=== PATIENT | male | born 1945 | race Caucasian/White ===

== ENCOUNTER 2017-07-12 19:11 | Inpatient (IN) ==
[2017-07-12 20:28] LABS: Hematocrit 28.8 % (42.0-52.0); Hemoglobin 9.5 gm/dL (13.5-18.0); Mean Cell Volume 96.3 fl (78-100); Mean Corpuscular Hemoglobin 31.8 pg (27-31); Neutrophil # 10.2 K/mm3 (1.3-6.0); Neutrophil % 77.5 % (42-75.0); Platelet Count 301 K/mm3 (150-450); Red Blood Count 2.99 M/mm3 (4.7-6.0); Red Cell Distribution Width 12.8 % (11.5-14.0); White Blood Count 13.1 K/mm3 (4.0-10.5)
[2017-07-12 20:44] LABS: Urine Bilirubin Negative (NEGATIVE); Urine Blood Negative /ul (NEGATIVE); Urine Ketone Negative (NEGATIVE); Urine Nitrite Negative (NEGATIVE); Urine Protein Negative (NEGATIVE); Urine Specific Gravity <=1.005 SP.GR. (1.005-1.030); Urine Urobilinogen Normal (NORMAL)
[2017-07-12 20:49] LABS: Troponin I 0.041 ng/ml (0.00-0.10)
[2017-07-12 20:51] LABS: Albumin * 2.7 gm/dl (3.4-5.0); BUN/Creatinine Ratio 48.6 (9.0-21.6); Bilirubin, Total 0.1 mg/dL (0.0-1.1); Ca. Corrected For Albumin 8.8 mg/dL (8.4-10.2); Calcium * 8.1 mg/dL (7.9-10.9); Potassium 3.6 mmol/L (3.4-4.6); Total Protein 6.1 gm/dL (6.2-8.2)
[2017-07-12 20:56] LABS: Urine Amorphous Sediment TRACE (NONE-FEW); Urine Appearance Clear (CLEAR); Urine Bacteria TRACE; Urine Color Yellow; Urine RBC None Seen /hpf (0-5); Urine WBC None Seen /hpf (0-5)
[2017-07-12 21:00] LABS: Anion Gap 12.3 mmol/L (6.8-13.8); Carbon Dioxide 27.3 mmol/L (24-32.6)
--- NOTE | 2017-07-12 21:09 | ERNOTE ---
Dyspnea - Date Date of Service: 07/12/17 - General Presenting Symptoms: shortness of breath, difficulty of breathing Time Seen by Provider: 07/12/17 19:47 Source: patient, family Exam Limitations: no limitations - Immun/Allergies/Home Medications Immunizations: IMMUNIZATION HX History of Influenza Vaccine No Hx Pneumococcal Vaccination No Allergies/Adverse Reactions: Allergies No Known Allergies Allergy (Unverified 03/21/12 09:15) Home Medications: HOME MEDICATIONS Alprazolam [Alprazolam ER] 0.5 mg PO TID 03/21/12 [Last Taken 03/21/12 08:00] Citalopram Hydrobromide [Citalopram HBr] 20 mg PO DAILY 03/21/12 [Last Taken 21/03 08:00] Desloratadine 5 mg PO DAILY 03/21/12 [Last Taken 03/21/12 08:00] Hydrocodone/Acetaminophen [Hydrocodon-Acetaminoph 7.5-325] 1 each PO 03/21/12 [ Last Taken Unknown] Loratadine [Claritin] 10 mg PO DAILY 03/21/12 [Last Taken Unknown] Losartan/Hydrochlorothiazide [Losartan-Hctz 100-25 mg Tab] 1 each PO DAILY 03/21 [Last Taken 03/21/12 08:00] Penicillin V Potassium 250 mg PO 03/21/12 [Last Taken Unknown] Venlafaxine HCl [Effexor Xr] 75 mg PO DAILY 03/21/12 [Last Taken 03/21/12 08:00] amLODIPine BESYLATE [Norvasc (Amlodipine)] 10 mg PO DAILY 03/21/12 [Last Taken 03/21/12 08:00] metFORMIN HCL [Metformin HCl ER] 850 mg PO BID 03/21/12 [Last Taken 03/21/12 08: 00] - History of Present Illness Narrative: patient c/o sob weakness. has had black diarrhea for last several days Severity: moderate Treatment [employer]: none Initiating event: Reports: other - black stools Frequency of episodes: Reports: no prior episodes Modifying Factors - (Improves): Reports: nothing Modifying Factors (Worsens): Reports: activity Associated Symptoms-Dyspnea: Reports: lightheadedness, anxiety, tingling of hands/face Review of Systems - Narrative Narrative: unremarkable - Review of Systems Constitutional: Present: See HPI, weakness, fatigue, malaise EYE: Present: no symptoms reported ENT: Present: no symptoms reported Respiratory: Present: shortness of breath, orthopnea Cardiology: Present: no symptoms reported Gastrointestinal/Abdominal: Present: See HPI, diarrhea, other - black stools Genitourinary: Present: no symptoms reported Musculoskeletal: Present: no symptoms reported Skin: Present: no symptoms reported Neurological: Present: no symptoms reported Endocrine: Present: no symptoms reported Hematologic/Lymphatic: Present: no symptoms reported - Narrative Narrative: unremarkable - Patient's Past Medical History Patient History - Medical: Diabetes Type 2 Patient History - Cardiac/Respiratory: Hypertension, Hyperlipidemia Patient History - Cancer: No Hx of Cancer Patient History - Surgical Procedures: No surgical history Patient History - Other: None - Family History Family History:: no untoward family reactions to anesthesia, no familial bleeding tendencies, no family history of clotting disorders, no family history of premature - Social History Living Situations: home Abuse History: No History of abuse Psych History: No pertinent hx Does anyone smoke in the home?: No Smoking Status: Former smoker Have you smoked in the past 12 months: No Do you dip or chew tobacco: No Patient requests Smoking Cessation Consult: No Initiate information on Smoking Cessation: No Alcohol Use: heavy Drug Use: none - Immunizations Hx Pneumococcal Vaccination: No History of Influenza Vaccine: No Physical Exam - Physical Exam General Appearance: Present: mild distress, anxious Head Exam: Present: normal inspection, no evidence of injury Eye Exam: Normal inspection: bilateral, PERRL: bilateral, EOMI: bilateral Ears, Nose, Throat: Present: normal ENT inspection Neck: Present: normal inspection, nontender Respiratory: Present: respiratory distress, rales, rhonchi Cardiovascular/Chest: Present: regular rate, rhythm, no murmur, normal peripheral pulses Peripheral Pulses: N=norm/S=strong/W=weak/B=bound/A=absent: Carotid (R): Normal , Carotid (L): Normal, Radial (R): Normal, Radial (L): Normal, Femoral (R): Normal, Femoral (L): Normal, Dorsalis-pedis (R): Normal, Dorsalis-pedis (L): Normal Gastrointestinal/Abdominal: Present: normal bowel sounds, nontender, nondistended, soft, no organomegaly Back Exam: Present: normal inspection, normal range of motion, no CVA tenderness , no vertebral tenderness Extremity Exam: Present: normal inspection, pedal edema Neurological Exam: Present: alert, oriented, normal mood/affect, no motor/ sensory deficits Skin Exam: Present: normal color, warm/dry Lymphatic Exam: Present: no adenopathy ED Progress - Date and Time Seen: Date and Time: 07/12/17 22:24 condition unchanged - Results and Orders Patient's Lab Results:: I have reviewed the patient's lab results. - Vital Signs Vital Signs: Vital Signs 07/12/17 19:13 Temperature 37.1 C Pulse Rate 114 H Respiratory 32 H Rate Blood Pressure 161/76 O2 Sat by Pulse 98 Oximetry - EKG EKG: other - sinus tachycardia EKG read: Interp. by me - Progress/Reassessment Chief Complaint: Dyspnea Progress:: Unchanged - Transfer of Care Expected Disposition: Admit Plan - Plan Plan: case discussed with [facility] hospitalist who accepts patient for admission Departure Clinical Impression: Congestive heart failure, GI bleed - Departure Disposition: Still a patient Condition: Fair Referrals: David Koo DO [Primary Care Provider] -
[2017-07-12] MEDS ORDERED: LORazepam 2 MG/ML DISP.SYRIN IV ONE (21:15)
[2017-07-12 21:21] LABS: Amylase * 35 U/L (25-115); Lipase 89 U/L (73-393)
[2017-07-12] MEDS ORDERED: LORazepam 2 MG/ML DISP.SYRIN ONE (21:23)
[2017-07-12 21:37] LABS: Prothrombin Time (Patient) 11.4 Seconds (9.0-11.0)
[2017-07-12 21:42] LABS: INR 1.14 INR (0.90-1.10); Partial Thrombolplastin Time 25.3 Seconds (24-32)
[2017-07-12] MEDS ORDERED: FUROSEMIDE 10 MG/ML VIAL IV ONE (22:08)
[2017-07-12] MEDS ORDERED: FUROSEMIDE 10 MG/ML VIAL ONE (22:17)
[2017-07-12 22:46] LABS: Hematocrit 28.8 % (42.0-52.0); Hemoglobin 9.5 gm/dL (13.5-18.0); Mean Cell Volume 96.6 fl (78-100); Mean Corpuscular Hemoglobin 31.9 pg (27-31); Mean Platelet Volume 9.3 fl (6.0-9.5); Neutrophil # 10.7 K/mm3 (1.3-6.0); Neutrophil % 72.6 % (42-75.0); Platelet Count 359 K/mm3 (150-450); Red Blood Count 2.98 M/mm3 (4.7-6.0); Red Cell Distribution Width 12.7 % (11.5-14.0); White Blood Count 14.8 K/mm3 (4.0-10.5)
--- NOTE | 2017-07-13 00:32 | HP ---
Chief Complaint - Chief Complaint Date of Service: 07/12/17 Time of Service: 23:52 Chief Complaint: "SOB, Weakness, Dizziness". Source of HPI- Pt; reliable, ERP report, Pt's POA- [place]. History of Present Illness: Mr. Spence is a 71-yr-old WM pt of Dr. David Koo in [place]. His PMH is significant for: Anxiety, Depression, DM II & HTN. Pt states that he started becoming SOB on 07/11 and that it's worsened with activity. He also felt weak & lightheaded and was brought to the ED due to these symptom by his brother Anjali, who is also POA. Pt reports noting black stools that begun 2 days also. He denies having any abdominal pain with this. He denies hematemesis and hematochezia. Anjali states that pt was hospitalized 1 month ago at the [facility] for Pneumonia and was there for at least 3 days. He states that pt lost his 6 yrs ago and for the last 4-5 yrs, he has been drinking heavily due to depression. Pt admits that he drinks at least 1-2 cases of 12pck beer daily. The only time time he never tasted alcohol was during 3 day hospital stay in [place]. At the ED tonight, he was found to have Hgb of 9.5 whereas previous level on 07/01/17 at [facility] was 13.8mg/dL.The occult stool was positive. The CXR had findings concerning for pulmonary congestion ( official CXR report pending), BNP--> 466, WBC--> 14,800. No infection on UA. He will be admitted under observation for Anemia due to blood loss from unknown source and signs of Acute Heart Failure. - Patient's Past Medical History Patient History - Medical: Anxiety, Diabetes Type 2, Depression Patient History - Cardiac/Respiratory: Hypertension, Hyperlipidemia Patient History - Cancer: No Hx of Cancer Patient History - Surgical Procedures: No surgical history Patient History - Other: None - Family History Family History:: no untoward family reactions to anesthesia, no familial bleeding tendencies, no family history of clotting disorders, no family history of premature - Family History Father Family History - Medical: Family History - Cardiac/Respiratory: Asthma Mother Family History - Medical: Family History - Cardiac/Respiratory: CVA/Stroke Brother Family History - Medical: Family History - Cancer: Throat Sister Family History - Medical: Family History - Cardiac/Respiratory: No pertinent hx Family History - Cancer: Liver - Social History Living Situations: home Abuse History: No History of abuse Psych History: No pertinent hx Does anyone smoke in the home?: No Smoking Status: Former smoker Have you smoked in the past 12 months: No Do you dip or chew tobacco: No Patient requests Smoking Cessation Consult: No Initiate information on Smoking Cessation: No Alcohol Use: heavy Drug Use: none - Immunizations Hx Pneumococcal Vaccination: No History of Influenza Vaccine: No Review Of Systems (GEN) - Review of Systems Generalized/Overall Review: Present: Weakness. Absent: Fever, Malaise, Fatigue EENTM: Absent: Eye Pain, Blurred Vision, Tearing, Double Vision Respiratory: Present: Shortness of Breath, Wheezing. Absent: Cough, Orthopnea Cardiac: Absent: Chest Pain, Edema, Palpitations Abdominal: Absent: Nausea, Vomiting, Hematemesis, Abdominal Pain, Constipation Genitourinary: Absent: Burning, Itching, Urgency Musculoskeletal: Absent: Joint Pain, Back Pain, Joint Swelling Neurological: Present: Depressed, Emotional Problems, Weakness. Absent: Headache, Anxiety Skin: Absent: Dryness, Lesions Endocrine: Absent: Intolerance to Cold, Increased Thirst Misc: All systems neg except as marked Immunizations: IMMUNIZATION HX History of Influenza Vaccine No Hx Pneumococcal Vaccination No Allergies/Adverse Reactions: Allergies Allergy/AdvReac Type Severity Reaction Status Date / Time No Known Allergies Allergy Unverified 07/12/17 23:12 Home Medications: HOME MEDICATIONS Alprazolam 1 mg PO TID 07/13/17 [Last Taken Unknown] Amlodipine Besylate 10 mg PO DAILY 07/13/17 [Last Taken Unknown] Escitalopram Oxalate [Lexapro] 20 mg PO DAILY 07/13/17 [Last Taken Unknown] Fexofenadine HCl [Allergy Relief] 180 mg PO HS 07/13/17 [Last Taken Unknown] HYDROcodone/ACETAMINOPHEN [Hydrocodon-Acetaminoph 7.5-325] 1 each PO QID [Last Taken Unknown] Metoprolol Succinate 25 mg PO DAILY 07/13/17 [Last Taken Unknown] Zolpidem Tartrate 10 mg PO HS 07/13/17 [Last Taken Unknown] metFORMIN HCL [Glucophage] 850 mg PO BID 07/13/17 [Last Taken Unknown] Exam - Exam Vital Signs: Vital Signs - Last Taken Temp 37.1 C 07/12/17 19:13 Pulse 109 H 07/12/17 22:30 Resp 21 H 07/12/17 22:30 BP 115/73 07/12/17 22:30 Pulse Ox 99 07/12/17 22:30 Constitutional: Present: Alert, Oriented x3, Cooperative, No distress ENT Exam: Present: normal ENT inspection, hearing grossly normal Eye Exam: bilateral eye: normal inspection, PERRL Neck: Present: non-tender, full range of motion, supple Back Exam: Present: normal inspection, no CVA tenderness Breasts: Present: Exam deferred Respiratory: Present: wheezing, expiration (prolonged), No rales Cardiovascular/Chest: Present: normal peripheral pulses, regular rate, rhythm, no chest tenderness, no edema Abdomen: Present: Normal bowel sounds, soft, nontender /Rectal: Present: Exam deferred Extremity: Present: normal range of motion, non-tender, normal inspection, no pedal edema Skin Exam: Present: warm/dry, no cyanosis Lymphatic: Present: no adenopathy Neurologic: Present: alert, oriented x 3, depressed affect Appearance: Present: appropriate appearance, appropriate insight Eye contact: Present: cooperative, good eye contact, normal speech Thoughts: Present: normal thought pattern, no apparent hallucination Diagnostic Studies: Abnormal Lab Results 07/12/17 Range/Units 22:45 WBC 14.8 H (4.0-10.5) K/mm3 RBC 2.98 L (4.7-6.0) M/mm3 Hgb 9.5 L (13.5-18.0) gm/dL Hct 28.8 L (42.0-52.0) % MCH 31.9 H (27-31) pg Immature Gran % (Auto) 0.50 H (0.001-0.429) % Immature Gran # (Auto) 0.07 H (0.000-0.0310) K/mm3 Lymphocytes % 18.2 L (20-51) % Neutrophils # 10.7 H (1.3-6.0) K/mm3 Monocytes # 1.1 H (0.0-1.0) k/mm3 Laboratory Results WBC 14.8 K/mm3 (4.0-10.5) H 07/12/17 22:45 RBC 2.98 M/mm3 (4.7-6.0) L 07/12/17 22:45 Hgb 9.5 gm/dL (13.5-18.0) L 07/12/17 22:45 Hct 28.8 % (42.0-52.0) L 07/12/17 22:45 MCV 96.6 fl (78-100) 07/12/17 22:45 MCH 31.9 pg (27-31) H 07/12/17 22:45 MCHC 33.0 g/dl (32-36) 07/12/17:45 RDW 12.7 % (11.5-14.0) 07/12/17:45 Plt Count 359 K/mm3 (150-450) 07/12/17 22:45 MPV 9.3 fl (6.0-9.5) 07/12/17 22:45 Immature Gran % (Auto) 0.50 % (0.001-0.429) H 07/12/17:45 Immature Gran # (Auto) 0.07 K/mm3 (0.000-0.0310) H 07/12/17 22:45 Neutrophils % 72.6 % (42-75.0) 07/12/17 22:45 Lymphocytes % 18.2 % (20-51) L 07/12/17 22:45 Monocytes % 7.7 % (0.0-9) 07/12/17 22:45 Eosinophils % 0.7 % (0.0-3.0) 07/12/17:45 Basophils % 0.3 % (0.0-1.0) 07/12/17 22:45 Nucleated RBC % 0.0 k/mm3 (0-1) 07/12/17 22:45 Neutrophils # 10.7 K/mm3 (1.3-6.0) H 07/12/17 22:45 Lymphocytes # 2.69 k/mm3 (1.5-3.5) 07/12/17 22:45 Monocytes # 1.1 k/mm3 (0.0-1.0) H 07/12/17:45 Eosinophils # 0.1 k/mm3 (0.0-0.7) 04/20/18 22:45 Absolute Basophils 0.1 k/mm3 (0.0-0.1) 07/12/17 22:45 PT 11.4 Seconds (9.0-11.0) H 07/12/17 20:25 INR (Anticoag Therapy) 1.14 INR (0.90-1.10) H 07/12/17 20:25 PTT (Sandoval) 25.3 Seconds (24-32) 07/12/17 20:25 pCO2 27.4 mmHg (35.0-48.0) L 07/12/17 20:25 pO2 85.9 mmHg (83.0-108.0) 07/12/17 20:25 HCO3 22.0 mmol/L (21.0-28.0) 07/12/17 20:25 Total CO2 22.8 mmol/L (19.0-24.0) 07/12/17 20: Base Excess -0.2 mmol/L (-2.0-3.0) 07/12/17 20:25 ABG pH 7.52 (7.35-7.45) H 07/12/17 20:25 ABG O2 Sat (Measured) 97.5 % (94.0-98.0) 07/12/17 20:25 Sodium 134 mmol/L (132-142) 07/12/17 20:20 Plasma Sodium 135 mmol/L (130-142) 07/12/17 20:20 Potassium 3.6 mmol/L (3.4-4.6) 07/12/17 20:20 Chloride 98 mmol/L (97-106) 07/12/17 20:20 Carbon Dioxide 27.3 mmol/L (24-32.6) 07/12/17 20:20 Anion Gap 12.3 mmol/L (6.8-13.8) 07/12/17 20:20 BUN 54 mg/dL (6-23) H 07/12/17 20:20 Creatinine 1.11 mg/dL (0.4-1.4) 07/12/17 20:20 Est GFR (Non-Af Amer) 70 mL/min (60-130) 07/12/17 20:20 BUN/Creatinine Ratio 48.6 (9.0-21.6) H 07/12/17 20:20 Random Glucose 169 mg/dL (70-110) H 07/12/17 20:20 Calcium 8.1 mg/dL (7.9-10.9) 07/12/17 20:20 Calcium Adj for Albumin 8.8 mg/dL (8.4-10.2) 07/12/17 20:20 Total Bilirubin 0.1 mg/dL (0.0-1.1) 07/12/17 20:20 AST 17 U/L (0-48) 07/12/17 20:20 ALT 14 U/L (19-67) L 07/12/17 20:20 Alkaline Phosphatase 75 U/L (50-170) 07/12/17 20:20 Troponin I 0.041 ng/ml (0.00-0.10) 07/12/17 20:20 B-Natriuretic Peptide 455 pg/mL (5-350) H 07/12/17 20:20 Total Protein 6.1 gm/dL (6.2-8.2) L 07/12/17 20:20 Albumin 2.7 gm/dl (3.4-5.0) L 07/12/17 20:20 Amylase 35 U/L (25-115) 07/12/17 19:45 Lipase 89 U/L (73-393) 07/12/17 19:45 Urine Color Yellow 07/12/17 20:15 Urine Appearance Clear (CLEAR) 07/12/17 20:15 Urine pH 6.0 pH (5.0-7.0) 07/12/17 20:15 Ur Specific [place] <=1.005 SP.GR. (1.005-1.030) 07/12/17 20:15 Urine Protein Negative mg/dL (NEGATIVE) 07/12/17 20:15 Urine Glucose (UA) Negative mg/dL (NEGATIVE) 07/12/17 20:15 Urine Ketones Negative mg/dL (NEGATIVE) 07/12/17 20:15 Urine Blood Negative /ul (NEGATIVE) 07/12/17 20:15 Urine Nitrate Negative (NEGATIVE) 07/12/17 20:15 Urine Bilirubin Negative mg/dl (NEGATIVE) 07/12/17 20:15 Urine Urobilinogen Normal EU/dl (NORMAL) 07/12/17 20:15 Ur Leukocyte Esterase Negative /ul (NEGATIVE) 07/12/17 20:15 Urine RBC None seen /hpf (0-5) 07/12/17 20:15 Urine WBC None seen /hpf (0-5) 07/12/17 20:15 Ur Epithelial Cells None seen /hpf (0-5) 07/12/17 20:15 Amorphous Sediment Trace (NONE-FEW) 07/12/17 20:15 Urine Bacteria Trace (NONE) 07/12/17 20:15 Urine Culture Comments No culture indicated 07/12/17 20:15 Stool Occult Blood Positive H 07/12/17 20:20 Blood Type O Positive 07/12/17 20:20 Antibody Screen Negative 07/12/17 20:20 Assessment/Plan - Assessment/Plan (1) Acute heart failure Assessment: Pt presented with Dyspnea, reports of fatigue/weakness, had findings of Pulmonary edema on CXR, & bnp of 455. Given Lasix 40mg IVP at the ED which gave minimal relief. Will await official radiology to determine need for continued diuretic therapy. Problem: Acute Qualifiers: Heart failure type: diastolic Qualified Code(s): I50.31 - Acute diastolic ( congestive) heart failure (2) GI bleed Assessment: Pt noted to have black tarry stools which was also positive for Occult testing. Pt has a history of heavy alcohol use therefore has risk for peptic ulcer. Will monitor serial H/H and keep on clear liquid diet. Consult Dr. Yang in am. Problem: Acute (3) Anemia Problem: Acute (4) Alcohol use disorder, severe, dependence Assessment: Associated with Depression. Will follow CIWAr protocol to aid with controlling withdrawal symptoms. Consult Psychiatry. Problem: Chronic (5) Depression Problem: Chronic (6) Leukocytosis Assessment: ? Pneumonia. UA was negative of infection. Await official CXR results. Laboratory Tests 07/12/17 07/12/17 20:20 22:45 WBC 13.1 H 14.8 H Problem: Acute (7) HTN (hypertension) Problem: Chronic Qualifiers: Hypertension type: essential hypertension Qualified Code(s): I10 - Essential (primary) hypertension (8) Diabetes Assessment: Continue Metformin. Accuchecks ACHS, Consistent Carb diet. Problem: Chronic (9) Anxiety Problem: Chronic
[2017-07-13] MEDS ORDERED: LORazepam 1 MG TABLET PO ONE (01:38)
[2017-07-13] MEDS: LORATADINE 10 MG TABLET PO SCH ×2 (03:14→20:45)
[2017-07-13] MEDS: LORazepam 2 MG/ML DISP.SYRIN IV PRN ×5 (05:00→21:58)
[2017-07-13 05:59] LABS: Mean Cell Volume 97.2 fl (78-100); Mean Corpuscular Hemoglobin 32.1 pg (27-31); Mean Corpuscular Hgb Conc 33.1 g/dl (32-36); Mean Platelet Volume 9.3 fl (6.0-9.5); Neutrophil % 78.8 % (42-75.0); Platelet Count 291 K/mm3 (150-450); Red Blood Count 2.46 M/mm3 (4.7-6.0); Red Cell Distribution Width 12.9 % (11.5-14.0); White Blood Count 10.2 K/mm3 (4.0-10.5)
[2017-07-13 06:03] LABS: Hematocrit 23.9 % (42.0-52.0)
[2017-07-13 06:04] LABS: Hemoglobin 7.9 gm/dL (13.5-18.0)
[2017-07-13] MEDS ORDERED: NORMAL SALINE 1,000 ML IV PRN (07:50)
[2017-07-13] MEDS: PANTOPRAZOLE SODIUM 40 MG in NORMAL SALINE 100 ML IV SCH (08:03)
--- NOTE | 2017-07-13 08:45 | PN ---
Subjective - Date and Time Seen Date: 07/13/17 Time: 08:38 Subjective Narrative: patient says e has been febrile the last few days too. he sasy he has always been having on and off SOb but the last 2-3 days he has been more short of breath. Objective - Review of Systems Generalized/Overall Review: Reports: Weakness, Fever Respiratory: Reports: Shortness of Breath. Denies: Orthopnea Cardiac: Denies: Chest Pain, Edema, Palpitations Abdominal: Reports: Nausea, Melena. Denies: Vomiting Genitourinary Symptoms: Denies: Urgency, Frequency - Vitals Vitals: Last Vital Signs Temp 36.4 C L 07/13/17 06:09 Pulse 98 07/13/17 06:09 Resp 20 07/13/17 06:09 BP 141/70 07/13/17 06:09 Pulse Ox 99 07/13/17 06:09 - Abnormal Lab Findings Abnormal Lab Findings: Abnormal Lab Results 07/12/17 07/13/17 Range/Units 22:45 05:45 WBC 14.8 H (4.0-10.5) K/mm3 RBC 2.98 L 2.46 L (4.7-6.0) M/mm3 Hgb 9.5 L 7.9 L* (13.5-18.0) gm/dL Hct 28.8 L 23.9 L* (42.0-52.0) % MCH 31.9 H 32.1 H (27-31) pg Immature Gran % (Auto) 0.50 H 0.60 H (0.001-0.429) % Immature Gran # (Auto) 0.07 H 0.06 H (0.000-0.0310) K/mm3 Neutrophils % 78.8 H (42-75.0) % Lymphocytes % 18.2 L 12.5 L (20-51) % Neutrophils # 10.7 H 8.0 H (1.3-6.0) K/mm3 Lymphocytes # 1.27 L (1.5-3.5) k/mm3 Monocytes # 1.1 H (0.0-1.0) k/mm3 - Exam Constitutional: Present: Alert, Oriented x3, Cooperative ENT Exam: Present: hearing grossly normal Neck: Present: supple Respiratory: Present: decreased breath sounds, wheezing, No rales Cardiovascular/Chest: Present: regular rate, rhythm, no JVD, no murmur Abdomen: Present: obese, tender - RUQ, rebound tenderness - equivocal, hypoactive Extremity: Present: no calf tenderness, pedal edema Assessment/Plan - Problems/Diagnosis (1) Anemia Problem: Acute Qualifiers: Anemia type: iron deficiency Narrative: likely UGIB (2) GI bleed Problem: Acute Qualifiers: Gastritis type: acute gastritis Narrative: r/o esophageal varices. on IV protonix. Dr. Yang consult for possible EGD. (3) Congestive heart failure Problem: Acute Narrative: clinically not in CHF but could have underlying alcohol cardiomyopahty. will try to get Echo. (4) Leukocytosis Problem: Acute Narrative: likely reactive and has resolved. but has tender RUQ , will get an US of his GB /liver. (5) Alcohol use disorder, severe, dependence Problem: Chronic (6) Anxiety Problem: Chronic (7) Depression Problem: Chronic (8) Diabetes Problem: Chronic (9) HTN (hypertension) Problem: Chronic Qualifiers: Hypertension type: essential hypertension Qualified Code(s): I10 - Essential (primary) hypertension
[2017-07-13] MEDS: THIAMINE HCL 100 MG TABLET PO SCH (08:51)
[2017-07-13] MEDS: FOLIC ACID 1 MG TABLET PO SCH ×2 (08:51→09:18)
[2017-07-13] MEDS: METOPROLOL SUCCINATE 25 MG TABLET.SA PO SCH (08:51)
[2017-07-13] MEDS: MULTIVITAMINS 1 CAP CAPSULE PO SCH ×2 (08:51→09:19)
[2017-07-13] MEDS: amLODIPine BESYLATE 10 MG TABLET PO SCH ×2 (08:51→09:19)
[2017-07-13] MEDS: ESCITALOPRAM OXALATE 10 MG TAB PO SCH ×2 (08:51→09:19)
[2017-07-13] MEDS: ALPRAZolam 1 MG TABLET PO SCH ×3 (08:56→17:14)
--- NOTE | 2017-07-13 10:30 | CONS ---
HPI - General Date of Service: 07/13/17 Source: patient, RN/MD, RN notes reviewed Exam Limitations: no limitations - History of Present Illness Initial Comments: The patient is a 71-year-old male who usually sees Dr. Koo in [place]. For the past 2 or 3 days he has noticed black sticky foul smelling bowel movements. He has been short of breath. He denies abdominal pain. He usually drinks about 2 cases of beer a day. He does not have much heartburn or indigestion, but he does have occasional crampy lower abdominal pain which is relieved by bowel movements. Initial workup revealed anemia, and his hemoglobin is fallen from 9.5-7.8 since admission. Platelet count is normal as are RBC indices with exception of increased MCH. Liver function studies, amylase/lipase are normal. BNP is slightly elevated. His white blood cell count has decreased to normal. Severity: moderate Associated Symptoms: shortness of breath, other - Tremor Allergies/Adverse Reactions: Allergies No Known Allergies Allergy (Unverified 07/12/17 23:12) Home Medications: Home Medications Medication Instructions Recorded Last Taken Alprazolam 1 mg PO TID 07/13/17 Unknown Amlodipine Besylate 10 mg PO DAILY 07/13/17 Unknown Escitalopram Oxalate [Lexapro] 20 mg PO DAILY 07/13/17 Unknown Fexofenadine HCl [Allergy Relief] 180 mg PO HS 07/13/17 Unknown HYDROcodone/ACETAMINOPHEN 1 each PO QID 07/13/17 Unknown [Hydrocodon-Acetaminoph 7.5-325] Metoprolol Succinate 25 mg PO DAILY 07/13/17 Unknown Zolpidem Tartrate 10 mg PO HS 07/13/17 Unknown metFORMIN HCL [Glucophage] 850 mg PO BID 07/13/17 Unknown - Patient's Past Medical History Patient History - Medical: Anxiety, Diabetes Type 2, Depression, Other - He had injury to his right arm and was on hydrocodone for this. He admits he became addicted to the drug and states he feels exactly the same today as when he couldn't get his hydrocodone before. Patient History - Cardiac/Respiratory: Hypertension, Hyperlipidemia Patient History - Cancer: No Hx of Cancer Patient History - Surgical Procedures: No surgical history Patient History - Other: None - Family History Family History:: no untoward family reactions to anesthesia, no familial bleeding tendencies, no family history of clotting disorders, no family history of premature - Family History Mother Family History - Medical: Family History - Cardiac/Respiratory: CVA/Stroke Family History - Cancer: No pertinent family hx Father Family History - Medical: Family History - Cardiac/Respiratory: Asthma Family History - Cancer: No pertinent family hx Brother Family History - Medical: Family History - Cancer: Throat Sister Family History - Medical: Family History - Cardiac/Respiratory: No pertinent hx Family History - Cancer: Liver - Social History Living Situations: home Abuse History: No History of abuse Psych History: No pertinent hx Does anyone smoke in the home?: No Smoking Status: Former smoker Have you smoked in the past 12 months: No Do you dip or chew tobacco: No Patient requests Smoking Cessation Consult: No Initiate information on Smoking Cessation: No Alcohol Use: heavy Drug Use: none - Immunizations Hx Pneumococcal Vaccination: No History of Influenza Vaccine: No Medications - Medications Current Medications: Current Medications Alprazolam (Xanax) 1 mg PO TID [facility] Stop: 08/12/17 09:01 Last Admin: 07/13/17 08:56 Dose: 1 mg Amlodipine Besylate (Norvasc) 10 mg PO DAILY [facility] Stop: 08/12/17 09:01 Last Admin: 07/13/17 09:19 Dose: Not Given Escitalopram Oxalate (Lexapro) 20 mg PO DAILY [facility] Stop: 08/12/17 09:01 Last Admin: 07/13/17 09:19 Dose: Not Given Folic Acid (Folic Acid) 1 mg PO DAILY [facility] Stop: 08/12/17 09:01 Last Admin: 07/13/17 09:18 Dose: Not Given Pantoprazole Sodium 40 mg/ (Sodium Chloride) 100 mls @ 400 mls/hr IV Q24H [facility] Stop: 08/12/17 07:16 Last Admin: 07/13/17 08:03 Dose: 400 mls/hr Loratadine (Claritin) 10 mg PO HS [facility] Stop: 08/12/17 02:31 Last Admin: 07/13/17 03:14 Dose: 10 mg Lorazepam (Ativan) 1 mg IV Q2H PRN PRN Reason: Alcohol Withdrawal Stop: 08/12/17 03:06 Last Admin: 07/13/17 05:00 Dose: 1 mg Lorazepam (Ativan) 2 mg IV Q1H PRN PRN Reason: Alcohol Withdrawal Stop: 08/12/17 03:06 Last Admin: 07/13/17 09:14 Dose: 2 mg Metformin HCl (Glucophage) 850 mg PO BIDWM [facility] Stop: 08/12/17 09:01 Last Admin: 07/13/17 09:18 Dose: Not Given Metoprolol Succinate (Toprol Xl) 25 mg PO DAILY [facility] Stop: 08/12/17 09:01 Last Admin: 07/13/17 08:51 Dose: 25 mg Multivitamins/Folic Acid (Multivitamin Gracie) 1 cap PO DAILY [facility] Stop: 08/12/17 09:01 Last Admin: 07/13/17 09:19 Dose: Not Given Thiamine HCl (Vitamin B-1) 100 mg PO DAILY [facility] Stop: 08/12/17 09:01 Last Admin: 07/13/17 08:51 Dose: 100 mg Review of Systems - Review of Systems Generalized/Overall Review: Present: Diaphoresis. Absent: Chills, Fever EENTM: Present: No Symptoms Reported Respiratory: Present: Shortness of Breath. Absent: Cough Cardiac: Present: Edema. Absent: Chest Pain Abdominal: Present: Other - Black tarry stools. Absent: Nausea, Vomiting, Hematemesis, Abdominal Pain Genitourinary: Present: No Symptoms Reported Musculoskeletal: Present: Other - Limited use of the right arm Neurological: Present: Anxiety, Tremors Skin: Present: No Symptoms Reported Endocrine: Present: No Symptoms Reported Physical Examination - Exam Vital Signs: Vital Signs - Last Taken Temp 36.4 C L 07/13/17 06:09 Pulse 98 07/13/17 09:19 Resp 20 07/13/17 06:09 BP 141/70 07/13/17 09:19 Pulse Ox 99 07/13/17 06:09 O2 Oxygen Delivery Method Room Air Constitutional: Present: Alert, Oriented x3, Cooperative, Well developed, Well nourished, Mild distress ENT Exam: Present: normal ENT inspection, hearing grossly normal Eye Exam: bilateral eye: normal inspection Neck: Present: full range of motion, normal inspection Breasts: Present: Exam deferred Respiratory: Present: no respiratory distress Cardiovascular/Chest: Present: regular rate, rhythm Abdomen: Present: other - Globoid, tympanitic but without percussion tenderness. No discrete point tenderness, and no rebound tenderness elicited. Bowel sounds active and cavernous Extremity: Present: pedal edema, other - Limited mobility of the right arm Skin Exam: Present: normal color, diaphoresis Neurologic: Present: camp tender II-XII nml as tested, normal cerebellar test, no motor/ sensory deficits, other - Course tremor Appearance: Present: appropriate insight Eye contact: Present: cooperative, good eye contact, normal speech Thoughts: Present: normal thought pattern, no apparent hallucination - Results and Findings: Lab/Microbiology results last 24 hrs: Abnormal/Pending Laboratory Last 24 HRS 07/13/17 07/12/17 05:45 22:45 WBC 14.8 H RBC 2.46 L 2.98 L Hgb 7.9 L* 9.5 L Hct 23.9 L* 28.8 L MCH 32.1 H 31.9 H Immature Gran % (Auto) 0.60 H 0.50 H Immature Gran # (Auto) 0.06 H 0.07 H Neutrophils % 78.8 H Lymphocytes % 12.5 L 18.2 L Neutrophils # 8.0 H 10.7 H Lymphocytes # 1.27 L Monocytes # 1.1 H - Assessments/Findings (1) GI bleed Diagnosis(s): GI bleeding with anemia, most likely source is esophagus stomach or duodenum. Need to determine whether varices, gastritis, or ulcer. Explained EGD to the patient the risks and benefits of the exam were explained. After interactive discussion his questions were answered to his apparent satisfaction and he has given informed consent for EGD with possible biopsy. This will be performed later this morning. Problem: Acute (2) Alcohol use disorder, severe, dependence Diagnosis(s): The patient does have withdrawal symptoms. He has a history of hydrocodone addiction as well and states his current symptoms are identical to withdrawal from that. He will need to be closely monitored Problem: Chronic
[2017-07-13] MEDS: INSULIN LISPRO 100 UNITS/ML VIAL SC SCH ×3 (10:44→17:10)
[2017-07-13 11:19] LABS: Hemoglobin 7.6 gm/dL (13.5-18.0)
[2017-07-13 11:20] LABS: Hematocrit 22.4 % (42.0-52.0)
[2017-07-13] MEDS ORDERED: NORMAL SALINE 1,000 ML IV ONE (11:26)
--- NOTE | 2017-07-13 12:22 | OR ---
Operative Report - Dictated Report Narrative: Operative Report Date of operation: 07/13/2017 Preoperative diagnosis: Upper GI bleeding. Anemia Postoperative diagnosis: Hiatal hernia, prepyloric and pyloric channel ulcers, duodenitis (evidence of recent, but no current bleeding) Operation: EGD with biopsies Surgeon: Dr Yang Anesthesia: JOSH AVENDAÑO CRNA Indications for procedure: The patient is a 71-year-old male presented to the emergency room with black tarry stools dizziness and shortness of breath. He was found to have heme positive stools with a falling hemoglobin. He is an active alcoholic Findings: Small hiatal hernia. 2 prepyloric and 1 pyloric channel ulcer with signs of recent bleeding. Duodenitis (pathology and CLOtest pending) Narrative of procedure: The patient was identified preoperatively, and prior to the administration of anesthetic a multidisciplinary timeout was observed With the patient in the recumbent position, a bite-block was placed, intravenous sedation administered, and the patient's eyes covered with a towel. The flexible fiberoptic gastroscope was advanced into the posterior pharynx which appeared normal. There was no sign of bleeding from above. The supraglottic larynx appeared normal. The cords appeared normal, moved well, and opposed in the midline. The scope was advanced under direct vision into the proximal esophagus which appeared normal. The esophagus appeared freely distensible with normal mucosa. The esophageal mucosa appeared normal down to the gastroesophageal junction which was sharp and noninflamed. There were no esophageal varices. There was no evidence of Kristy-Rosales tear. The GE junction appeared normally distensible. There was a small hiatal hernia. The scope was advanced into the stomach proper which was insufflated with air. The proximal stomach was erythematous with several patches of submucosal hemorrhage. A retroflexed view of the gastric fundus revealed no additional lesions and demonstrated a normal-appearing gastric side of the GE junction. The scope was redirected toward the pylorus. There were 2 large prepyloric ulcers with clot. The pylorus appeared patent. There was a small pyloric channel ulcer with clot. The scope was advanced into the duodenal bulb which appeared erythematous but without active ulcer. The scope was advanced further to the horizontal portion of the duodenum which appeared normal, specifically the villous architecture appeared well preserved and clear bile was present. The scope was slowly withdrawn through the duodenal bulb with confirmation that no active ulcer was present. The scope was withdrawn into the stomach and quality assurance representative biopsies of gastric mucosa obtained for CLOtest and pathology. The biopsy sites were seen to be hemostatic. The insufflated air was removed, the scope withdrawn from the patient, and the procedure terminated. The patient tolerated the anesthetic and procedure well without complication and was transferred back to his room awake and in stable condition. The findings were discussed with the patient, his granddaughter, and Dr Lee. Reviewed in electronically signed
[2017-07-13 16:26] LABS: Cocaine Ur Negative (NEGATIVE); Urine Barbiturate Negative (NEGATIVE); Urine PCP Negative (NEGATIVE); Urine THC Negative (NEGATIVE)
[2017-07-13 16:34] LABS: Urine Opiates Negative (NEGATIVE)
[2017-07-13 16:40] LABS: Urine Benzodiazepines Positive (NEGATIVE)
[2017-07-13] MEDS: ZOLPIDEM TARTRATE 10 MG TABLET PO SCH (20:44)
[2017-07-13] MEDS: HYDROcodone/ACETAMINOPHEN 1 EACH TABLET PO PRN (21:59)
[2017-07-13 22:26] LABS: Hematocrit 23.8 % (42.0-52.0)
[2017-07-13 22:27] LABS: Hemoglobin 7.8 gm/dL (13.5-18.0)
[2017-07-14] MEDS: LORazepam 2 MG/ML DISP.SYRIN IV PRN ×5 (03:12→22:52)
[2017-07-14] MEDS: HYDROcodone/ACETAMINOPHEN 1 EACH TABLET PO PRN ×3 (04:17→19:37)
--- NOTE | 2017-07-14 05:33 | PN ---
Subjective - Date and Time Seen Date: 07/14/17 Time: 06:01 Subjective Narrative: Pt seen this am. States RT shoulder hurts. Required prn Ativan in the night for withdrawal. Given 1 more unit of PRBC for hgb of 7.8. now 8.4 this morning. No other acute events overnight. Objective - Vitals Vitals: Last Vital Signs Temp 36.8 C 07/14/17 03:18 Pulse 81 07/14/17 03:18 Resp 35 H 07/14/17 03:18 BP 176/90 07/14/17 03:18 Pulse Ox 98 07/14/17 03:18 - Abnormal Lab Findings Abnormal Lab Findings: Abnormal Lab Results 07/13/17 07/13/17 Range/Units 15:27 23:00 Hgb 7.8 L* (13.5-18.0) gm/dL Hct 23.8 L* (42.0-52.0) % U Benzodiazepines Scrn Positive H (NEGATIVE) - Exam Constitutional: Present: Alert, Oriented x3, Cooperative, No distress ENT Exam: Present: normal ENT inspection Neck: Present: non-tender, full range of motion, supple Breasts: Present: Exam deferred Respiratory: Present: chest non-tender, wheezing, expiration (prolonged) Cardiovascular/Chest: Present: normal peripheral pulses, regular rate, rhythm, no chest tenderness Abdomen: Present: Normal bowel sounds, soft, nontender /Rectal: Present: Exam deferred Extremity: Present: normal range of motion, non-tender, normal inspection Skin Exam: Present: warm/dry, no cyanosis Lymphatic: Present: no adenopathy Neurologic: Present: no motor/sensory deficits, alert, normal mood/affect Appearance: Present: appropriate appearance, appropriate insight Eye contact: Present: cooperative, good eye contact, normal speech Thoughts: Present: normal thought pattern, no apparent hallucination Assessment/Plan - Problems/Diagnosis (1) Acute heart failure Problem: Acute Qualifiers: Heart failure type: diastolic Qualified Code(s): I50.31 - Acute diastolic ( congestive) heart failure Narrative: Manifested by SOB and elevated BNP --> 455, but no sign of fluid retention. However due to risk of Alcohol Cardiomyopathy,will need an Echocardiogram. (2) GI bleed Problem: Acute Narrative: Had EGD on 07/13/17- found to have pyloric channel ulcer without any recent bleeding. Started on PPI. (3) Peptic ulcer disease Problem: Acute Narrative: Plan to start him on PPI X 4 weeks at discharge. (4) Anemia Problem: Acute Qualifiers: Anemia type: iron deficiency (5) Alcohol use disorder, severe, dependence Problem: Chronic Narrative: Associated with Depression. Will follow CIWAr protocol to aid with controlling withdrawal symptoms. Consult Psychiatry. (6) Leukocytosis Problem: Acute Narrative: Now resolved, Was likely reactive. UA negative of infection, CXR - no acute findings, US of gallbladder negative. (7) Depression Problem: Chronic (8) HTN (hypertension) Problem: Chronic Qualifiers: Hypertension type: essential hypertension Qualified Code(s): I10 - Essential (primary) hypertension (9) Diabetes Problem: Chronic Narrative: Continue Metformin. Accuchecks ACHS, Consistent Carb diet. (10) Anxiety Problem: Chronic
[2017-07-14 05:34] LABS: Hematocrit 25.8 % (42.0-52.0); Hemoglobin 8.4 gm/dL (13.5-18.0); Mean Cell Volume 98.1 fl (78-100); Mean Corpuscular Hemoglobin 31.9 pg (27-31); Mean Corpuscular Hgb Conc 32.6 g/dl (32-36); Mean Platelet Volume 8.8 fl (6.0-9.5); Neutrophil # 6.8 K/mm3 (1.3-6.0); Neutrophil % 74.3 % (42-75.0); Platelet Count 231 K/mm3 (150-450); Red Blood Count 2.63 M/mm3 (4.7-6.0); Red Cell Distribution Width 13.9 % (11.5-14.0); White Blood Count 9.2 K/mm3 (4.0-10.5)
[2017-07-14 05:48] LABS: Chol/HDL Risk Ratio 2.6 mg/dL (3.3-5.0)
[2017-07-14] MEDS: PANTOPRAZOLE SODIUM 40 MG in NORMAL SALINE 100 ML IV SCH (06:38)
[2017-07-14] MEDS: INSULIN LISPRO 100 UNITS/ML VIAL SC SCH ×3 (06:39→17:46)
[2017-07-14] MEDS: ESCITALOPRAM OXALATE 10 MG TAB PO SCH (08:27)
[2017-07-14] MEDS: MULTIVITAMINS 1 CAP CAPSULE PO SCH (08:27)
[2017-07-14] MEDS: FOLIC ACID 1 MG TABLET PO SCH (08:27)
[2017-07-14] MEDS: amLODIPine BESYLATE 10 MG TABLET PO SCH (08:27)
[2017-07-14] MEDS: THIAMINE HCL 100 MG TABLET PO SCH (08:28)
[2017-07-14] MEDS: METOPROLOL SUCCINATE 25 MG TABLET.SA PO SCH (08:28)
[2017-07-14] MEDS: ALPRAZolam 1 MG TABLET PO SCH ×3 (08:30→17:49)
[2017-07-14] MEDS: LISINOPRIL 20 MG TABLET PO SCH (10:08)
[2017-07-14] MEDS: ZOLPIDEM TARTRATE 10 MG TABLET PO SCH (20:42)
[2017-07-14] MEDS: LORATADINE 10 MG TABLET PO SCH (20:45)
[2017-07-15] MEDS: HYDROcodone/ACETAMINOPHEN 1 EACH TABLET PO PRN ×4 (01:37→20:42)
[2017-07-15] MEDS: LORazepam 2 MG/ML DISP.SYRIN IV PRN ×2 (01:38→06:41)
[2017-07-15 06:00] LABS: Hematocrit 27.1 % (42.0-52.0); Hemoglobin 8.8 gm/dL (13.5-18.0); Mean Corpuscular Hemoglobin 32.5 pg (27-31); Mean Corpuscular Hgb Conc 32.5 g/dl (32-36); Neutrophil # 3.8 K/mm3 (1.3-6.0); Neutrophil % 61.7 % (42-75.0); Platelet Count 268 K/mm3 (150-450); Red Blood Count 2.71 M/mm3 (4.7-6.0); White Blood Count 6.1 K/mm3 (4.0-10.5)
[2017-07-15] MEDS: PANTOPRAZOLE SODIUM 40 MG in NORMAL SALINE 100 ML IV SCH (06:53)
[2017-07-15] MEDS: INSULIN LISPRO 100 UNITS/ML VIAL SC SCH ×3 (07:17→17:30)
--- NOTE | 2017-07-15 08:09 | PN ---
Subjective - Date and Time Seen Date: 07/15/17 Time: 08:05 Subjective Narrative: Patient does not like our full liquids. He says he is still very weak. Objective - Review of Systems Generalized/Overall Review: Reports: Weakness. Denies: Chills, Fever Respiratory: Denies: Cough, Shortness of Breath Cardiac: Denies: Chest Pain, Edema, Palpitations Abdominal: Denies: Nausea, Vomiting, Abdominal Pain Genitourinary Symptoms: Denies: Urgency, Frequency Neurological: Reports: Anxiety - Vitals Vitals: Last Vital Signs Temp 36.8 C 07/15/17 07:26 Pulse 88 07/15/17 07:26 Resp 18 07/15/17 07:26 BP 156/84 07/15/17 07:26 Pulse Ox 94 07/15/17 07:26 - Abnormal Lab Findings Abnormal Lab Findings: Abnormal Lab Results 07/15/17 Range/Units 05:38 RBC 2.71 L (4.7-6.0) M/mm3 Hgb 8.8 L (13.5-18.0) gm/dL Hct 27.1 L (42.0-52.0) % MCH 32.5 H (27-31) pg Monocytes % 9.3 H (0.0-9) % Eosinophils % 4.9 H (0.0-3.0) % Lymphocytes # 1.42 L (1.5-3.5) k/mm3 - Exam Constitutional: Present: Alert, Oriented x3, Cooperative ENT Exam: Present: hearing grossly normal Neck: Present: supple Respiratory: Present: normal breath sounds, No rales, No wheezing Cardiovascular/Chest: Present: regular rate, rhythm, no JVD, no murmur Abdomen: Present: Normal bowel sounds, soft, nontender, nondistended Extremity: Present: no pedal edema, no calf tenderness Assessment/Plan - Problems/Diagnosis (1) Anemia Problem: Acute Qualifiers: Anemia type: iron deficiency Narrative: s/p BT Hb 8.1 (2) GI bleed Problem: Acute Qualifiers: Gastritis type: acute gastritis Narrative: duodenal ulcers. (3) Congestive heart failure Problem: Acute (4) Leukocytosis Problem: Resolved (5) Alcohol use disorder, severe, dependence Problem: Chronic Narrative: will consult Sarah Mcfarland. (6) Anxiety Problem: Chronic (7) Depression Problem: Chronic (8) Diabetes Problem: Chronic (9) HTN (hypertension) Problem: Chronic Qualifiers: Hypertension type: essential hypertension Qualified Code(s): I10 - Essential (primary) hypertension (10) Weakness Problem: Acute Narrative: will consult PT
[2017-07-15] MEDS: FOLIC ACID 1 MG TABLET PO SCH (08:54)
[2017-07-15] MEDS: THIAMINE HCL 100 MG TABLET PO SCH (08:54)
[2017-07-15] MEDS: ALPRAZolam 1 MG TABLET PO SCH ×3 (08:54→17:28)
[2017-07-15] MEDS: MULTIVITAMINS 1 CAP CAPSULE PO SCH (08:55)
[2017-07-15] MEDS: ESCITALOPRAM OXALATE 10 MG TAB PO SCH (08:55)
[2017-07-15] MEDS: LISINOPRIL 20 MG TABLET PO SCH (08:55)
[2017-07-15] MEDS: amLODIPine BESYLATE 10 MG TABLET PO SCH (08:55)
[2017-07-15] MEDS: METOPROLOL SUCCINATE 25 MG TABLET.SA PO SCH (08:55)
--- NOTE | 2017-07-15 15:46 | CONS ---
[facility] - General Date of Service: 07/15/17 Narrative: Visit lasts approx. 20 minutes. Patient admits to long-standing depression, anxiety and alcohol dependence. He states that he was referred to someone in [facility] and has seen a counselor in [place], [place] in the past. Source: patient, RN/MD, RN notes reviewed Exam Limitations: no limitations - History of Present Illness Initial Comments: Patient states that he has had anxiety most of his life. Anxiety has gotten worse since last divorce. Alcohol use has increased. States that he would like to go into a bar and have 1-2 drinks like his friends do, instead he can't stop drinking once he starts. Drinks 12+ beers per day. Timing/Duration: getting worse Severity: severe Allergies/Adverse Reactions: Allergies No Known Allergies Allergy (Unverified 07/12/17 23:12) Home Medications: Home Medications Medication Instructions Recorded Last Taken Alprazolam 1 mg PO TID 07/13/17 Unknown Amlodipine Besylate 10 mg PO DAILY 07/13/17 Unknown Escitalopram Oxalate [Lexapro] 20 mg PO DAILY 07/13/17 Unknown Fexofenadine HCl [Allergy Relief] 180 mg PO HS 07/13/17 Unknown HYDROcodone/ACETAMINOPHEN 1 each PO QID 07/13/17 Unknown [Hydrocodon-Acetaminoph 7.5-325] Metoprolol Succinate 25 mg PO DAILY 07/13/17 Unknown Zolpidem Tartrate 10 mg PO HS 07/13/17 Unknown metFORMIN HCL [Glucophage] 850 mg PO BID 07/13/17 Unknown - Patient's Past Medical History Patient History - Medical: Anxiety, Diabetes Type 2, Depression, Other - He had injury to his right arm and was on hydrocodone for this. He admits he became addicted to the drug and states he feels exactly the same today as when he couldn't get his hydrocodone before. Patient History - Cardiac/Respiratory: Hypertension, Hyperlipidemia Patient History - Cancer: No Hx of Cancer Patient History - Surgical Procedures: No surgical history Patient History - Other: None - Family History Family History:: no untoward family reactions to anesthesia, no familial bleeding tendencies, no family history of clotting disorders, no family history of premature - Family History Mother Family History - Medical: Family History - Cardiac/Respiratory: CVA/Stroke Family History - Cancer: No pertinent family hx Father Family History - Medical: Family History - Cardiac/Respiratory: Asthma Family History - Cancer: No pertinent family hx Brother Family History - Medical: Family History - Cancer: Throat Sister Family History - Medical: Family History - Cardiac/Respiratory: No pertinent hx Family History - Cancer: Liver - Social History Living Situations: home Abuse History: No History of abuse Psych History: No pertinent hx Does anyone smoke in the home?: No Smoking Status: Former smoker Have you smoked in the past 12 months: No Do you dip or chew tobacco: No Patient requests Smoking Cessation Consult: No Initiate information on Smoking Cessation: No Alcohol Use: heavy Drug Use: none - Immunizations Hx Pneumococcal Vaccination: No History of Influenza Vaccine: No Procedures DETOXIFICATION SERVICES FOR SUBSTANCE ABUSE TREATMENT (07/13/17) EXCISION OF STOMACH, ENDO, DIAGN (07/13/17) TRANSFUSE NONAUT RED BLOOD CELLS IN CENTRAL ART, PERC (07/13/17) Medications - Medications Current Medications: Current Medications Hydrocodone Bitart/Acetaminophen (Barbeau 5-325) 1.5 each PO QID PRN PRN Reason: Moderate Pain (pain scale 4-6) Stop: 08/12/17 03:12 Last Admin: 07/15/17 14:43 Dose: 1.5 each Alprazolam (Xanax) 1 mg PO TID [facility] Stop: 08/12/17 09:01 Last Admin: 07/15/17 13:14 Dose: 1 mg Amlodipine Besylate (Norvasc) 10 mg PO DAILY [facility] Stop: 08/12/17 09:01 Last Admin: 07/15/17 08:55 Dose: 10 mg Escitalopram Oxalate (Lexapro) 20 mg PO DAILY [facility] Stop: 08/12/17 09:01 Last Admin: 07/15/17 08:55 Dose: 20 mg Folic Acid (Folic Acid) 1 mg PO DAILY [facility] Stop: 08/12/17 09:01 Last Admin: 07/15/17 08:54 Dose: 1 mg Pantoprazole Sodium 40 mg/ (Sodium Chloride) 100 mls @ 400 mls/hr IV Q24H [facility] Stop: 08/12/17 07:16 Last Infusion: 07/15/17 07:08 Dose: Infused Insulin Human Lispro (Humalog) 0 - 21 units SC ACINS [facility] PRN Reason: Protocol Stop: 08/12/17 09:16 Last Admin: 07/15/17 11:47 Dose: Not Given Lisinopril (Zestril) 20 mg PO DAILY [facility] Stop: 08/13/17 09:01 Last Admin: 07/15/17 08:55 Dose: 20 mg Loratadine (Claritin) 10 mg PO HS [facility] Stop: 08/12/17 02:31 Last Admin: 07/14/17 20:45 Dose: 10 mg Lorazepam (Ativan) 1 mg IV Q2H PRN PRN Reason: Alcohol Withdrawal Stop: 08/12/17 03:06 Last Admin: 07/15/17 06:41 Dose: 1 mg Lorazepam (Ativan) 1 mg IV Q1H PRN PRN Reason: Alcohol Withdrawal Stop: 08/12/17 03:06 Last Admin: 07/14/17 11:45 Dose: 1 mg Lorazepam (Ativan) 2 mg IV Q1H PRN PRN Reason: Alcohol Withdrawal Stop: 08/12/17 03:06 Last Admin: 07/13/17 14:20 Dose: 2 mg Metformin HCl (Glucophage) 850 mg PO BIDWM [facility] Stop: 08/12/17 09:01 Last Admin: 07/15/17 08:55 Dose: 850 mg Metoprolol Succinate (Toprol Xl) 25 mg PO DAILY [facility] Stop: 08/12/17 09:01 Last Admin: 07/15/17 08:55 Dose: 25 mg Multivitamins/Folic Acid (Multivitamin Gracie) 1 cap PO DAILY [facility] Stop: 08/12/17 09:01 Last Admin: 07/15/17 08:55 Dose: 1 cap Thiamine HCl (Vitamin B-1) 100 mg PO DAILY [facility] Stop: 08/12/17 09:01 Last Admin: 07/15/17 08:54 Dose: 100 mg Zolpidem Tartrate (Ambien) 10 mg PO HS [facility] Stop: 08/12/17 21:01 Last Admin: 07/14/17 20:42 Dose: 10 mg Review of Systems - Review of Systems Neurological: Present: Anxiety, Depressed Physical Examination - Exam Narrative: Patient is alert and oriented. States that he takes a medication for depression and a medication for anxiety (review of chart shows that he is prescribed Lexapro 20 mg, Xanax and Zolpidem.) He states that he is still depressed. Anxiety is worse since being hospitalized, mainly due to alcohol withdrawal. Is a daily drinker, drinks beer approx. 12-24 cans per day. Discussed goals for treatment. He desires to reduce alcohol consumption, not abstain completely. He states that he would be interested in treatment but could not commit to appointment date he was offered. He states that he has a number of things he needs to get situated and then he will call for an appointment. Discussed treatment options. For time being, will increase Lexapro to 30 mg daily. Written instructions provided. New patient packet and business card provided. Brochure for ADDS provided. Written instructions provided. Patient voices understanding. Vital Signs: Vital Signs - Last Taken Temp 36.8 C 07/15/17 14:13 Pulse 73 07/15/17 14:13 Resp 16 07/15/17 14:13 BP 121/63 07/15/17 14:13 Pulse Ox 94 07/15/17 14:13 O2 Oxygen Delivery Method Room Air Neurologic: Present: oriented x 3 Appearance: Present: appropriate appearance, appropriate insight, no memory impairment Eye contact: Present: cooperative, good eye contact, normal speech Thoughts: Present: normal thought pattern, no apparent hallucination - Results and Findings: Lab/Microbiology results last 24 hrs: Abnormal/Pending Laboratory Last 24 HRS 07/15/17 05:38 RBC 2.71 L Hgb 8.8 L Hct 27.1 L MCH 32.5 H Monocytes % 9.3 H Eosinophils % 4.9 H Lymphocytes # 1.42 L - Assessments/Findings (1) Alcohol use disorder, severe, dependence Problem: Chronic (2) Depression Problem: Chronic
[2017-07-15] MEDS ORDERED: ESCITALOPRAM OXALATE 10 MG TAB PO ONE (16:15)
[2017-07-15] MEDS: ZOLPIDEM TARTRATE 10 MG TABLET PO SCH (20:42)
[2017-07-15] MEDS: LORATADINE 10 MG TABLET PO SCH (20:44)
[2017-07-16] MEDS: HYDROcodone/ACETAMINOPHEN 1 EACH TABLET PO PRN ×4 (02:16→20:57)
[2017-07-16] MEDS: INSULIN LISPRO 100 UNITS/ML VIAL SC SCH ×3 (07:20→17:27)
[2017-07-16] MEDS: PANTOPRAZOLE SODIUM 40 MG in NORMAL SALINE 100 ML IV SCH (07:29)
--- NOTE | 2017-07-16 08:15 | ECHO ---
This report is available in the EMR
[2017-07-16] MEDS: ALPRAZolam 1 MG TABLET PO SCH ×3 (08:21→17:28)
[2017-07-16] MEDS: THIAMINE HCL 100 MG TABLET PO SCH (08:21)
[2017-07-16] MEDS: ESCITALOPRAM OXALATE 10 MG TAB PO SCH (08:21)
[2017-07-16] MEDS: METOPROLOL SUCCINATE 25 MG TABLET.SA PO SCH (08:22)
[2017-07-16] MEDS: amLODIPine BESYLATE 10 MG TABLET PO SCH (08:22)
[2017-07-16] MEDS: FOLIC ACID 1 MG TABLET PO SCH (08:22)
[2017-07-16] MEDS: MULTIVITAMINS 1 CAP CAPSULE PO SCH (08:22)
[2017-07-16] MEDS: LISINOPRIL 20 MG TABLET PO SCH (08:22)
--- NOTE | 2017-07-16 09:15 | PN ---
Subjective - Date and Time Seen Date: 07/16/17 Time: 09:10 Subjective Narrative: Still feels agitated easily and still feeling the shakes. Objective - Review of Systems Generalized/Overall Review: Reports: Weakness Respiratory: Denies: Cough, Shortness of Breath Cardiac: Denies: Chest Pain, Edema, Palpitations Abdominal: Denies: Nausea, Vomiting Genitourinary Symptoms: Denies: Urgency, Frequency Musculoskeletal Complaints: Reports: Joint Pain - Vitals Vitals: Last Vital Signs Temp 36.6 C 07/16/17 07:09 Pulse 80 07/16/17 08:22 Resp 18 07/16/17 07:09 BP 162/79 07/16/17 08:22 Pulse Ox 97 07/16/17 07:09 - Exam Constitutional: Present: Alert, Oriented x3, Cooperative ENT Exam: Present: hearing grossly normal Neck: Present: supple Respiratory: Present: decreased breath sounds, No rales, No wheezing Cardiovascular/Chest: Present: regular rate, rhythm, no JVD, no murmur Abdomen: Present: Normal bowel sounds, soft, nontender, nondistended Extremity: Present: no pedal edema, no calf tenderness Assessment/Plan - Problems/Diagnosis (1) Anemia Problem: Acute Qualifiers: Anemia type: iron deficiency (2) GI bleed Problem: Acute Qualifiers: Gastritis type: acute gastritis Narrative: change to PO protonix. advance diet. (3) Leukocytosis Problem: Resolved (4) Alcohol use disorder, severe, dependence Problem: Chronic Narrative: Psych increase his antidepressant. (5) Anxiety Problem: Chronic (6) Depression Problem: Chronic (7) Diabetes Problem: Chronic (8) HTN (hypertension) Problem: Chronic Qualifiers: Hypertension type: essential hypertension Qualified Code(s): I10 - Essential (primary) hypertension Narrative: will increase lisinorpil to 40 mg PO QD. (9) Weakness Problem: Acute
[2017-07-16] MEDS ORDERED: LISINOPRIL 20 MG TABLET PO ONE (09:30)
[2017-07-16] MEDS: LORATADINE 10 MG TABLET PO SCH (21:07)
[2017-07-16] MEDS: ZOLPIDEM TARTRATE 10 MG TABLET PO SCH (21:07)
[2017-07-17] MEDS: HYDROcodone/ACETAMINOPHEN 1 EACH TABLET PO PRN ×3 (03:28→09:41)
[2017-07-17 05:25] LABS: Hematocrit 28.1 % (42.0-52.0); Mean Cell Volume 98.6 fl (78-100); Mean Corpuscular Hemoglobin 31.6 pg (27-31); Mean Platelet Volume 8.7 fl (6.0-9.5); Neutrophil # 3.8 K/mm3 (1.3-6.0); Neutrophil % 61.9 % (42-75.0); Platelet Count 336 K/mm3 (150-450); Red Blood Count 2.85 M/mm3 (4.7-6.0); Red Cell Distribution Width 14.4 % (11.5-14.0); White Blood Count 6.1 K/mm3 (4.0-10.5)
[2017-07-17] MEDS ORDERED: PANTOPRAZOLE SODIUM 40 MG TABLET.EC PO SCH (07:00)
[2017-07-17] MEDS: INSULIN LISPRO 100 UNITS/ML VIAL SC SCH ×2 (07:57→11:57)
--- NOTE | 2017-07-17 08:02 | DS ---
(1) Anemia Diagnosis(s): improved with BT Problem: Acute Qualifiers: Anemia type: iron deficiency (2) GI bleed Diagnosis(s): UGIB Problem: Acute Qualifiers: Gastritis type: acute gastritis (3) Leukocytosis Diagnosis(s): reactive to stress of GIB Problem: Resolved (4) Alcohol use disorder, severe, dependence Problem: Chronic (5) Anxiety Problem: Chronic (6) Depression Problem: Chronic (7) Diabetes Problem: Chronic (8) HTN (hypertension) Diagnosis(s): lisinopril increased to 40 mg PO qd. Problem: Chronic Qualifiers: Hypertension type: essential hypertension Qualified Code(s): I10 - Essential (primary) hypertension (9) Weakness Problem: Acute Description of Stay: Valerio Spence, is a 71-yr-old WM pt of Dr. David Koo in [place], with PMH significant for: Anxiety, Depression, DM II & HTN who was admitted on 2017. He started becoming SOB on 07/11 and that it worsened with activity. He also felt weak & lightheaded and was brought to the ED due to these symptom by his brother Anjali,who is also POA. The patient noted black stools that begun 2 days G[employer]. He denied having any abdominal pain with this. He denied hematemesis and hematochezia. Anjali states that pt was hospitalized 1 month ago at the [facility] for Pneumonia and was there for at least 3 days. The patient lost his 6 yrs ago and for the last 4-5 yrs, he has been drinking heavily due to depression. He drinks at least 1-2 cases of 12pck beer daily. The only time time he never tasted alcohol was during 3 day hospital stay in [place]. In the ED , his Hgb was 9.5 whereas previous level on 07/01/17 at [facility] was 13.8mg/dL.The occult stool was positive. His BNP--> 466, WBC--> 14,800. No infection on UA. He was admitted and was put on NPO, IV protonix. He underwent EGD and biopsy by Dr. Yang and it showed prepyloric ulcers with evidence of recent bleeding. His H. Pylori was negative. He received BT and his HB is now above 9. He was monitored for alcohol withdrawal following our CIWA protocol and received IV ativans. He was seen by Sarah Mcfarland and his sertraline was increased . She gave him ADDS brochure and made an appointment but patient sasy that he had some projects to finish and will call her office for an appointment. He is stable to be discharged today and follow up with his PCP, Dr. Koo next week. Procedures Performed: see notes below List Procedures: EGD with biopsy Discharge Location: Home Disposition: Home self-care Condition: Stable Discharge Activity: Activity as tolerated Discharge Diet: Consistent carbs Referrals: David Koo DO [Primary Care Provider] - Additional Patient Instructions (free text): Dr Koo in [address] [address] Follow up appt[address] with Dr. Koo scheduled for 07/24/17 @ 9:30 a.m. Please arrive 15 minutes prior to your appt. Follow up appt with Sarah Mcfarland SaturdayJuly 23 at 8:30AM. Please arrive 15 minutes prior to your appt. Prescriptions (Any new or edited meds): Escitalopram Oxalate [Lexapro] 30 mg PO DAILY #30 tablet Folic Acid 1 mg PO DAILY #7 tablet Lisinopril [Zestril] 40 mg PO DAILY #30 tablet Pantoprazole Sodium [Protonix] 40 mg PO DAILY@0700 #30 tablet. Thiamine HCl [Vitamin B-1] 100 mg PO DAILY #7 tablet Complete Home Medications List: Complete Home Medication List: Alprazolam 1 mg PO TID 07/13/17 Amlodipine Besylate 10 mg PO DAILY 07/13/17 Fexofenadine HCl [Allergy Relief] 180 mg PO HS 07/13/17 HYDROcodone/ACETAMINOPHEN [Hydrocodone-Acetamin 7.5-325] 1 each PO QID 07/13/17 Metoprolol Succinate 25 mg PO DAILY 07/13/17 Zolpidem Tartrate 10 mg PO HS 07/13/17 metFORMIN HCL [Glucophage] 850 mg PO BID 07/13/17 Escitalopram Oxalate [Lexapro] 30 mg PO DAILY #30 tablet 07/17/17 Folic Acid 1 mg PO DAILY #7 tablet 07/17/17 Lisinopril [Zestril] 40 mg PO DAILY #30 tablet 07/17/17 Pantoprazole Sodium [Protonix] 40 mg PO DAILY@0700 #30 tablet. 07/17/17 Thiamine HCl [Vitamin B-1] 100 mg PO DAILY #7 tablet 07/17/17 Amb Orders for Discharge: CBC Time Frame: 07/22/17, Location: Determined By Patient
[2017-07-17] MEDS: FOLIC ACID 1 MG TABLET PO SCH (08:27)
[2017-07-17] MEDS: ESCITALOPRAM OXALATE 10 MG TAB PO SCH (08:27)
[2017-07-17] MEDS: MULTIVITAMINS 1 CAP CAPSULE PO SCH (08:28)
[2017-07-17] MEDS: amLODIPine BESYLATE 10 MG TABLET PO SCH (08:28)
[2017-07-17] MEDS: ALPRAZolam 1 MG TABLET PO SCH ×2 (08:29→12:46)
[2017-07-17] MEDS: THIAMINE HCL 100 MG TABLET PO SCH (08:29)
[2017-07-17] MEDS: METOPROLOL SUCCINATE 25 MG TABLET.SA PO SCH (08:30)
[2017-07-17] MEDS ORDERED: LISINOPRIL 40 MG TABLET PO SCH (09:00)
[2017-07-17 13:01] VITALS: BP 143/57
== END 2017-07-17 13:00 | disposition home or self-care (01) | DRG 379 ==
LOC: ER 19:11 → MS 22:26 → OBSVTOIN 07-13 12:14
PROVIDERS: ADMIT Nurse Practitioner; ATTEND Internal Medicine
DX: F32.9 Major depressive disorder, single episode, unspecified; E11.9 Type 2 diabetes mellitus without complications; F10.20 Alcohol dependence, uncomplicated; F41.9 Anxiety disorder, unspecified; D72.829 Elevated white blood cell count, unspecified; K29.81 Duodenitis with bleeding; K29.01 Acute gastritis with bleeding; K44.9 Diaphragmatic hernia without obstruction or gangrene; R53.1 Weakness; D50.9 Iron deficiency anemia, unspecified; I10 Essential (primary) hypertension
CPT/HCPCS: 36415; 36600; 71020; 71046; 76700; 80053; 80061; 80307; 80320; 81001; 82150; 82272; 82803; 83519; 83690; 83880; 84484; 85014; 85018; 85025; 85610; 85730; 86850; 86900; 87040; 87081; 88305; 88312; 88313; 93005; 93306; 94760; 96374; 96375; 97161; 99285; G0378; G0479; G0481; P9016

== ENCOUNTER 2018-08-25 07:49 | Observation (INO) ==
--- NOTE | 2018-08-13 09:26 | ANES ---
Anesthesia Pre Procedure Eval HOME MEDICATIONS Metoprolol Succinate 25 mg PO DAILY 07/13/17 [Last Taken Unknown] Zolpidem Tartrate 10 mg PO HS 07/13/17 [Last Taken Unknown] metFORMIN HCL [Glucophage] 850 mg PO BID 07/13/17 [Last Taken Unknown] Folic Acid 1 mg PO DAILY #7 tab 07/17/17 [Last Taken Unknown] Thiamine HCl [Vitamin B-1] 100 mg PO DAILY #7 tab 07/17/17 [Last Taken Unknown] alprazolam 1 mg tablet 1 mg PO TID PRN 07/22/18 [Last Taken Unknown] amlodipine 10 mg tablet 10 mg PO DAILY 07/22/18 [Last Taken Unknown] carvedilol 6.25 mg tablet 6.25 mg PO BID 07/22/18 [Last Taken Unknown] duloxetine 20 mg capsule,delayed release 20 mg PO BID 07/22/18 [Last Taken Unknown] losartan 100 mg-hydrochlorothiazide 25 mg tablet 1 tab PO DAILY 07/22/18 [Last Taken Unknown] paroxetine 40 mg tablet 40 mg PO DAILY 07/22/18 [Last Taken Unknown] rosuvastatin 10 mg tablet 10 mg PO DAILY 07/22/18 [Last Taken Unknown] Allergies/Adverse Reactions: Allergies Allergy/AdvReac Type Severity Reaction Status Date / Time No Known Allergies Allergy Verified 07/22/18 13:31 - Planned Procedure Planned Procedure: Right Total Knee Arthroplasty Medication List Reviewed:: Yes Allergies Verified: Yes Medical History (Updated 07/22/18 @ 14:50 by Basilio Mueller MA) Osteoarthritis of right knee (Acute) Onset Date: Unknown Knee pain, right (Acute) Onset Date: Unknown Depression Onset Date: Unknown Ear pain Onset Date: Unknown History of GI bleed Onset Date: Unknown History of anxiety Onset Date: Unknown Hx of diabetes mellitus Onset Date: Unknown Hx of primary hypertension Onset Date: Unknown Hx of sinusitis Onset Date: Unknown Left knee DJD Onset Date: Unknown Surgical History (Updated 07/02/18 @ 08:37 by Basilio Mueller MA) History of esophagogastroduodenoscopy (EGD) Onset Date: ~07/13/17 Bagan-clotest negative. 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 Hx of knee surgery Onset Date: Unknown left knee arthroplasty Hx of neck surgery Onset Date: Unknown Left neck artery "for nosebleed" as a child Family History (Updated 07/02/18 @ 08:38 by Basilio Mueller MA) Father asthma and cardiac Mother CVA (cerebral vascular accident) - Family Anesthesia History Family History:: no untoward family reactions to anesthesia, no familial bleeding tendencies, no family history of clotting disorders, no family history of premature - Airway/Neck/Teeth Within Normal Limits:: Yes Teeth Condition: none Denture Type: Full upper, Full lower Neck Exam: full range of motion Mallampatti Score: 2 Thyromental (T-M) distance: > 6 cm Mandibulo Hyoid distance: > 3 cm - Respiratory Respiratory Physical: lungs clear Smoking Status: Never smoker Sleep Apnea currently treated: No Sleep Apnea by current assessment: No - Cardiovascular Cardiac History: hypertension, hyperlipidemia Tolerate Activity: Fair Heart Sounds: S1 & S2, Regular - Anesthesia Assessment and Plan ASA Class: PS, III - High anxiety, on benzodiazapines Anesthesia Type Plan: Block - Adductor canal block for post op pain relief, Spinal
[~2018-08-25 07:49] MED LIST: MORPHINE SULFATE 15 MG TABLET.SA PO PRN; ROPIVACAINE HCL/PF 100 MG, EPINEPHrine 0.2 MG, KETOROLAC TROMETHAMINE 30 MG in NORMAL S... IJ PRN; TRANEXAMIC ACID 1,000 MG in NORMAL SALINE 100 ML IV PRN; ceFAZolin SODIUM 1 GM VIAL IV PRN
[2018-08-25] MEDS: RINGER'S SOLUTION,LACTATED 1,000 ML IV PRN ×4 (09:07→22:48)
--- NOTE | 2018-08-25 09:15 | ANES ---
Anesthesia Pre Procedure Eval Vitals/Labs: Last Vital Signs Temp 36.5 C 08/25/18 08:13 Pulse 89 08/25/18 08:13 Resp 19 08/25/18 08:13 BP 185/97 H 08/25/18 08:13 Pulse Ox 94 08/25/18 08:13 HOME MEDICATIONS Zolpidem Tartrate 10 mg PO HS 07/13/17 [Last Taken 08/24/18] metFORMIN HCL [Glucophage] 850 mg PO BID 07/13/17 [Last Taken 08/24/18] Folic Acid 1 mg PO DAILY #7 tab 07/17/17 [Last Taken 08/24/18] alprazolam 1 mg tablet 1 mg PO TID 07/22/18 [Last Taken 08/24/18] amlodipine 10 mg tablet 10 mg PO DAILY 07/22/18 [Last Taken 08/24/18] duloxetine 20 mg capsule,delayed release 20 mg PO BID 07/22/18 [Last Taken 08/24/18] losartan 100 mg-hydrochlorothiazide 25 mg tablet 1 tab PO DAILY 07/22/18 [Last Taken 08/24/18] rosuvastatin 10 mg tablet 10 mg PO DAILY 07/22/18 [Last Taken 08/24/18] Metoprolol Tartrate 50 mg PO BID 08/13/18 [Last Taken Unknown] HYDROcodone/ACETAMINOPHEN [Hydrocodon-Acetaminophen 5-325] 1 ea PO Q6H PRN 08/25/18 [Last Taken 08/18/18] PARoxetine HCL [Paroxetine HCl] 30 mg PO DAILY 08/25/18 [Last Taken 08/24/18] Allergies/Adverse Reactions: Allergies Allergy/AdvReac Type Severity Reaction Status Date / Time No Known Allergies Allergy Verified 08/13/18 13:46 - Planned Procedure Planned Procedure: Right Total Knee Arthroplasty Medication List Reviewed:: Yes Allergies Verified: Yes Medical History (Updated 08/25/18 @ 08:23 by Citlaly Kahn RN) Osteoarthritis of right knee (Acute) Onset Date: Unknown Knee pain, right (Acute) Onset Date: Unknown Breathing problem Daily consumption of alcohol 17-18 beers per day Hyperlipemia Non-tobacco user Wears dentures Wears glasses Depression Onset Date: Unknown Ear pain Onset Date: Unknown History of GI bleed Onset Date: Unknown History of anxiety Onset Date: Unknown Hx of diabetes mellitus Onset Date: Unknown Hx of primary hypertension Onset Date: Unknown Hx of sinusitis Onset Date: Unknown Left knee DJD Onset Date: Unknown Surgical History (Updated 07/02/18 @ 08:37 by Basilio Mueller MA) History of esophagogastroduodenoscopy (EGD) Onset Date: ~07/13/17 Bagan-clotest negative. 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 Hx of knee surgery Onset Date: Unknown left knee arthroplasty Hx of neck surgery Onset Date: Unknown Left neck artery "for nosebleed" as a child Family History (Last Reviewed 08/25/18 @ 09:13 by Clarke Troncoso CRNA) Father asthma and cardiac Mother CVA (cerebral vascular accident) A-fib Pacemaker Brother Aortic aneurysm Hypertension Throat cancer Sister Liver cancer Sister Asthma Hyperlipemia Acid reflux Sister Alive and well Sister Alive and well Brother Kidney stones Brother Hyperlipemia - Family Anesthesia History Family History:: no untoward family reactions to anesthesia, no familial bl eeding tendencies, no family history of clotting disorders, no family history of premature - Airway/Neck/Teeth Within Normal Limits:: Yes Teeth Condition: none Denture Type: Full upper, Full lower Mallampatti Score: 2 Thyromental (T-M) distance: > 6 cm Mandibulo Hyoid distance: > 3 cm - Respiratory Respiratory Physical: lungs clear Smoking Status: Never smoker Discussed smoking cessation including day of surgery: No Sleep Apnea currently treated: No Sleep Apnea by current assessment: No Discussed Risks/Treatment of WALLACE: No - Cardiovascular Tolerate Activity: Fair Heart Sounds: S1 & S2, Regular - Anesthesia Assessment and Plan ASA Class: PS, III Anesthesia Type Plan: Block - Right ultrasound guided adductor canal block for postop analgesia, Spinal
--- NOTE | 2018-08-25 11:37 | OR ---
Operative Report - Dictated Report Narrative: Date: 08/25/2018 Preoperative diagnosis: Right Knee degenerative joint disease. Postoperative diagnosis: Right Knee degenerative joint disease. Procedure: Right Total knee arthroplasty. Surgeon: Andrae Álvarez M.D. Bilingual Receptionist: Alexandre Hargrove PA-C (provided and essential set of skilled, educated hands that assisted with transfer, positioning, prepping, draping, manipulation, retraction, placement of jigs, injection, insertion of implants, irrigation, closure wounds, and dressings all of which could not be performed by the available surgical crew) Anesthesia: Spinal with regional block and local periarticular joint injection. Complications: None Specimens: Bone. Estimated blood loss: Minimal. Tourniquet time: 85 Minutes at 350 millimeters of mercury. Retained implants: Depuy Attune size 7 right lugged cemented posterior stabilized femoral component. Size 7 fixed-bearing cemented tibial platform. 7 by 5 millimeter posterior stabilized cross-linked tibial insert. 41 millimeter medialized patella button. Indications: Mr. Spence is a 72-year-old gentleman who has had long-standing right knee pain and arthrosis. This patient was followed in my clinic for period of time with significant complaints of right knee pain consistent with arthritic changes. He had failed conservative measures including, but not limited to, activity modification, passage of time, medications, and other conservative measures. Patient wished to proceed with surgical treatment. The risks, benefits, and alternatives were discussed in clinic. The risks of , blood clots, bleeding, infection, nerve/tendon blood vessel/ injury, malposition of components, intraoperative fracture, postoperative limited range of motion, persistent pain, failure of components, and need for additional procedures. Patient wished to proceed consent was obtained after answering all questions. Procedure: After marking the correct extremity on the floor, the patient was taken to the operating room. A timeout was performed. IV antibiotics consisting of Ancef were administered prior to the procedure. A regional followed by spinal anesthetic was induced by anesthesia, per my request, on the operative table with all bony prominences well-padded. Sanabria catheter was placed, and a bump was placed under the operative side buttock. SCDs and PEPE hose were utilized on the nonoperative leg. A well-padded tourniquet was applied to the operative thigh. The operative leg was then pre-scrubbed with alcohol, prepped, and draped in a standard sterile fashion. After exsanguinating the extremity with an Esmarch bandage, the tourniquet was inflated. After marking out the anterior knee for standard incision centered over the patella, the skin was incised and dissected down to the joint retinaculum. The joint retinaculum was marked out as well as the horizontal axis of the patella, and a standard medial parapatellar arthrotomy was then made. The most proximal aspect of the quadriceps tendon and the patella tendon insertion were protected from release. A partial synovectomy was performed as well as a resection of the infrapatellar fat pad. The distal femoral fat pad proximal to the trochlea was also resected using cautery. The soft tissues were elevated off the medial aspect of the proximal tibia using a Sahni elevator ensuring that we did not transect the medial collateral ligament. Upon initial evaluation range of motion was approximately 0 degrees to 130 degrees of flexion. There were signs of advanced arthrosis in the medial and patellofemoral greater than lateral joint spaces. There also is white deposits consistent with possible gout. There were large marginal osteophytes which were removed with a rongeur. The knee was hyperflexed and the patella was tucked laterally. Protecting the surrounding soft tissues with Homans, an entry drill was placed down the femoral canal using Whitesides line for guidance into the entry point. The intramedullary femoral alignment julia was utilized in order to cut the distal femur in 5 degrees of valgus resecting 10 millimeters of bone. Next the distal femur was sized to a size 7. A posterior referencing guide was utilized to place the distal femoral cutting block in 3 degrees of external rotation. This was pinned into place. The rotation was confirmed both visually and based on anatomic landmarks. The 4 in 1 cutting jig of the appropriate size was utilized in order to make all bony cuts. The angle wing was used to ensure no notching. Retractors were utilized in order to protect surrounding soft tissues. This cut did not result in any excessive notching. We then cut the box centered over the distal femur. This allowed for resection of the anterior and posterior cruciate ligaments. I then turned my attention to the preparation of the tibia. Using an extra medullary tibial alignment julia, 5 millimeters of bone was resected off the medial articular surface. This was made perpendicular to the mechanical axis of the joint with the alignment julia centered over the ankle mortise. The alignment julia was checked and was noted to be parallel to the mechanical axis, centered over the medial one third of the tibial tubercle, paralleling the anterior surface of the tibia. We then turned our attention to the remaining meniscus and soft tissues. These were removed while protecting the surrounding ligaments and soft tissues. The marginal osteophytes off the anterior, posterior, medial, lateral aspects of the femur and tibia were removed. The tibia was sized out to a size 7. Next the tibia was drilled and punched in an externally rotated position. Next the trial femur and a series of tibial inserts were utilized in order to allow for full extension and maximal flexion. It was found that a 5 millimeter insert gave the best range of motion and stability at multiple flexion points as well as at full extension there was less than 2 mm of gapping both medially and laterally. There is minimal anterior translation with the knee at 90 degrees of flexion and no signs of being able to dislocate the knee. The patella was then prepared. The initial thickness was 26 millimeters. This was reamed down to 16 millimeters parallel to the anterior surface of the patella. It was sized out to a size 41 medialized patella button. This was then drilled and trialed. Without any medial restraint the patella tracked appropriately and did not sublux or dislocate. At this point, it was felt these were the appropriate sized implants, and all trials were removed. The standard periarticular joint injection consisting of ropivacaine, Toradol, and epinephrine were injected into the periarticular joint tissues. The bony surfaces were thoroughly irrigated with a pulsatile-suction saline irrigation device. A bone plug from the prior resected anterior chamfer cut was placed into the drill hole at the distal femur. The bony surfaces were then dried in preparation for placement of the implants. The cement was vacuum mixed per the insulation helper's instructions. The cement was placed on the dry bony surfaces and posterior aspect of the implants. The implants were impacted into place, removing all extruded cement. At this point anesthesia administered tranexamic acid per protocol intravenously. The knee was placed in extension with axial loading with the trial insert while the cement cured. Once the cement cured, all remaining extruded cement was removed. The knee was placed through a range of motion with the trial insert to ensure appropriate range of motion and stability. Final range of motion was approximately 0 to 130 degrees. The knee was again thoroughly irrigated with pulsatile saline lavage. The final polyethylene insert was then impacted into place ensuring no retained soft tissues. The remaining periarticular joint injection was injected. A medium Hemovac drain was placed exiting superior laterally. The knee was then placed over a triangle and the arthrotomy was closed with interrupted #1 Vicryl after thoroughly irrigating the joint. The deep and subcutaneous tissues were closed with interrupted 0 and 3-0 Vicryl respectively. Skin was closed with a running subcutaneous 3-0 Monocryl and Prineo Dermabond dressing. 4 x 4's, Sof-Rol, and a full leg Kenneth wrap were applied. All sponge, needle, blade, and instrument counts were correct prior to closing the wounds. Postoperative condition: The patient was awoken and transferred to the postanesthesia care unit in stable condition. Plan is to be admitted to the inpatient medical/surgical floor postoperatively for 24 hours of IV antibiotics, physical therapy, occupational therapy, and medical comanagement. Patient will be weightbearing as tolerated with range of motion as tolerated. DVT prophylaxis will be with SCDs, PEPE hose, and pharmacological anticoagulation. Anticipated hospital stay is approximately 1-3 days.
[2018-08-25] MEDS ORDERED: ZOLPIDEM TARTRATE 5 MG TABLET PO PRN (11:38)
[2018-08-25] MEDS ORDERED: ONDANSETRON HCL/PF 2 MG/ML VIAL IV PRN (11:38)
[2018-08-25] MEDS ORDERED: ALPRAZolam 1 MG TABLET PO PRN (11:38)
[2018-08-25] MEDS ORDERED: MORPHINE SULFATE 2 MG/ML DISP.SYRIN IV PRN (11:38)
[2018-08-25] MEDS ORDERED: MAG HYDROX/ALUMINUM HYD/SIMETH 30 ML UDC PO PRN (11:38)
[2018-08-25] MEDS ORDERED: MAGNESIUM HYDROXIDE 30 ML UDC PO PRN (11:38)
[2018-08-25] MEDS ORDERED: diphenhydrAMINE HCL 50 MG/ML VIAL IV PRN (11:38)
[2018-08-25] MEDS ORDERED: ACETAMINOPHEN 500 MG TABLET PO PRN (11:38)
--- NOTE | 2018-08-25 11:54 | ANES ---
Anesthesia Procedure Note Procedure Note: ANESTHESIA PROCEDURE NOTE Date of Procedure: 08/25/2018. Time of procedure: 939. Performed by: Clarke Troncoso CRNA Sensor Specialist: None. Preprocedure diagnosis: Right knee degenerative joint disease. Post procedure diagnosis: Same. Procedure: Right ultrasound guided adductor canal block for postoperative analgesia. Indications: The patient is a 72 -year-old male, requesting right ultrasound- guided abductor canal nerve block for postoperative analgesia related to right total knee arthroplasty. Findings: See below. Details of the procedure: The tissue over the intended target site was cleansed with ChloraPrepand draped in a sterile fashion. 2 ml Lidocaine 1 % was infiltrated to the skin and subcutaneous tissue at the intended target site. Under sterile technique and ultrasound guidance a 18-gauge Tuohy needle was inserted through the right sartorius muscle to the saphenous nerve just anterior and medial to the superficial femoral artery and vein. 15 mL's of 0.5% bupivacaine was injected after negative aspiration for blood. Needle tip and spread of local anesthetic surrounding the saphenous nerve was observed throughout the injection with real time ultrasound visualization. The Tuohy needle was then removed intact. No complications were noted. The images were retained in the Hospital medical database . EBL: Minimal. Fluids: N/A. Specimen: N/A. Post procedure condition: The patient tolerated the procedure well. No complications were noted. Thank you for this consultation. Clarke Troncoso CRNA
--- NOTE | 2018-08-25 11:56 | ANES ---
Post Anesthesia Discharge - Transfer of Care Transfer of Care handoff given to nurse: Yes - Discharge from PACU Discharge from PACU when meets criteria: Yes - Comfortable
--- NOTE | 2018-08-25 12:17 | ANES ---
Post Anesthesia Assessment - Vital Signs Vitals: Last Vital Signs Temp 36.3 C 08/25/18 12:10 Pulse 89 08/25/18 12:10 Resp 18 08/25/18 12:10 BP 125/80 08/25/18 12:10 Pulse Ox 100 08/25/18 12:10 Airway Patency: Normal - Mental Status Level Of Consciousness: Awake, Alert, Appropriate - Pain Level Pain Score: 0 - N/V Assessment Nausea/Vomiting Presence: None Dehydration:: No
[2018-08-25] MEDS: ALPRAZolam 1 MG TABLET PO SCH ×2 (12:34→16:48)
[2018-08-25] MEDS: KETOROLAC TROMETHAMINE 15 MG/ML VIAL IV SCH ×2 (13:12→18:04)
[2018-08-25] MEDS: oxyCODONE HCL/ACETAMINOPHEN 1 TAB TABLET PO PRN ×2 (14:18→19:15)
[2018-08-25] MEDS: ceFAZolin SODIUM 1 GM in DEXTROSE 5 % IN WATER 100 ML IV SCH ×4 (14:27→21:47)
[2018-08-25] MEDS ORDERED: METOPROLOL TARTRATE 50 MG TABLET PO ONE (14:37)
[2018-08-25] MEDS ORDERED: amLODIPine BESYLATE 10 MG TABLET PO ONE (14:38)
[2018-08-25] MEDS ORDERED: LOSARTAN POTASSIUM 50 MG TABLET PO ONE (14:38)
[2018-08-25] MEDS ORDERED: chlordiazePOXIDE HCL 25 MG CAPSULE PO PRN (16:48)
--- NOTE | 2018-08-25 17:09 | CONS ---
- Reason for consultation (1) Alcohol withdrawal Date of Service: 08/25/18 HPI - General Date of Service: 08/25/18 Narrative: 72-year-old male status post right knee replacement postop day 0 with past medical history of hypertension, diabetes type 2, anxiety disorder, anemia, peptic ulcer disease, depression, CHF, alcoholism, was evaluated at bedside after undergoing a successful and uneventful total right knee replacement. Patient was found to be afebrile and in no acute distress. Mr. Spence has an extensive history of alcohol abuse, therefore I was consulted to treat and monitor for alcohol withdrawal. Patient admits to drinking up to 10 cans of beer per day for over 10 years his last drink was only 2 days ago, so he was placed on seizure precautions. Benzodiazepines in case of seizure were also ordered. Patient also takes anxiolytics for his anxiety, and is also being treated with pain narcotics to control postop pain. Therefore patient needs to be monitored closely after the administration of these medications and concomitant administration should be avoided. Source: patient Exam Limitations: physical impairment - History of Present Illness Timing/Duration: unsure Severity: mild Associated Symptoms: denies symptoms Allergies/Adverse Reactions: Allergies No Known Allergies Allergy (Verified 08/13/18 13:46) Home Medications: Home Medications Medication Instructions Recorded Last Taken Zolpidem Tartrate 10 mg PO HS 07/13/17 08/24/18 metFORMIN HCL [Glucophage] 850 mg PO BID 07/13/17 08/24/18 Folic Acid 1 mg PO DAILY #7 tab 07/17/17 08/24/18 alprazolam 1 mg tablet 1 mg PO TID 07/22/18 08/24/18 amlodipine 10 mg tablet 10 mg PO DAILY 07/22/18 08/24/18 duloxetine 20 mg capsule,delayed 20 mg PO BID 07/22/18 08/24/18 release losartan 100 1 tab PO DAILY 07/22/18 08/24/18 mg-hydrochlorothiazide 25 mg tablet rosuvastatin 10 mg tablet 10 mg PO DAILY 07/22/18 08/24/18 Metoprolol Tartrate 50 mg PO BID 08/13/18 Unknown HYDROcodone/ACETAMINOPHEN 1 ea PO Q6H PRN 08/25/18 08/18/18 [Hydrocodon-Acetaminophen 5-325] PARoxetine HCL [Paroxetine HCl] 30 mg PO DAILY 08/25/18 08/24/18 Procedures Detoxification Services for Substance Abuse Treatment (07/13/17) Excision of Stomach, Via Natural or Artificial Opening Endoscopic, Diagnostic (07/13/17) Transfusion of Nonautologous Red Blood Cells into Central Artery, Percutaneous Approach (07/13/17) Ultrasonography of Right and Left Heart (07/13/17) Medications - Medications Current Medications: Current Medications Alprazolam (Xanax) 1 mg PO TID MICHELLE Stop: 09/24/18 13:01 Last Admin: 08/25/18 12:34 Dose: Not Given Documented by: Cefazolin Sodium (Ancef) 2 gm IV PRN PRN; Protocol PRN Reason: PERIOPERATIVE ANTIBIOTICS Stop: 09/24/18 06:01 Last Admin: 08/25/18 10:00 Dose: 2 gm Documented by: Lactated Ringer's (Lactated Ringers) 1,000 mls @ 175 mls/hr IV .Q5H43M PRN PRN Reason: HYDRATION Stop: 09/24/18 06:01 Last Admin: 08/25/18 10:33 Dose: 175 mls/hr Documented by: Ropivacaine 100 mg/Epinephrine HCl 0.2 mg/Ketorolac Tromethamine 30 mg/Sodium Chloride 111.2 mls @ 0.01 mls/hr IJ PRN PRN PRN Reason: JOINT INJECTION Stop: 08/30/18 06:01 Last Admin: 08/25/18 10:34 Dose: 0.01 mls/hr Documented by: Cefazolin Sodium 1 gm/ (Dextrose/Water) 100 mls @ 200 mls/hr IV Q6H MICHELLE; Protocol Stop: 08/26/18 03:29 Last Infusion: 08/25/18 14:57 Dose: Infused Documented by: Lactated Ringer's (Lactated Ringers) 1,000 mls @ 125 mls/hr IV .Q8H PRN PRN Reason: HYDRATION Stop: 09/24/18 11:39 Last Admin: 08/25/18 13:56 Dose: 125 mls/hr Documented by: Ketorolac Tromethamine (Toradol) 15 mg IV Q6H MICHELLE Stop: 08/27/18 06:31 Last Admin: 08/25/18 13:12 Dose: 15 mg Documented by: Morphine Sulfate (Ms Contin) 15 mg PO PREOP PRN PRN Reason: preop pain Stop: 09/24/18 06:01 Last Admin: 08/25/18 09:19 Dose: 15 mg Documented by: Oxycodone/Acetaminophen (Percocet 5 Mg/325 Mg) 2 tab PO Q4H PRN PRN Reason: Moderate Pain (pain scale 4-6) Stop: 09/24/18 11:39 Last Admin: 08/25/18 14:18 Dose: 2 tab Documented by: Review of Systems - Review of Systems Generalized/Overall Review: Present: No Symptoms Reported EENTM: Present: No Symptoms Reported Respiratory: Present: No Symptoms Reported Cardiac: Present: No Symptoms Reported Abdominal: Present: No Symptoms Reported Genitourinary: Present: No Symptoms Reported Musculoskeletal: Present: Joint Pain Neurological: Present: No Symptoms Reported Skin: Present: No Symptoms Reported Endocrine: Present: No Symptoms Reported Physical Examination - Exam Vital Signs: Vital Signs - Last Taken Temp 36.8 C 08/25/18 16:16 Pulse 68 08/25/18 16:16 Resp 14 08/25/18 16:16 BP 137/78 08/25/18 16:16 Pulse Ox 96 08/25/18 16:16 O2 Oxygen Delivery Method Room Air Constitutional: Present: Alert, Oriented x3, Cooperative, Well developed, Well nourished, No distress ENT Exam: Present: normal ENT inspection, hearing grossly normal Eye Exam: bilateral eye: normal inspection, PERRL, EOMI Neck: Present: non-tender, full range of motion, supple, normal inspection, trachea midline Breasts: Present: Exam deferred Respiratory: Present: chest non-tender, lungs clear Cardiovascular/Chest: Present: normal peripheral pulses, regular rate, rhythm, no chest tenderness, no edema, no gallop, no JVD, no murmur Peripheral Pulses: carotid (R): 3+, carotid (L): 3+ Abdomen: Present: Normal bowel sounds, soft, nontender, nondistended, no rebound tenderness Extremity: Present: other - Right knee covered by clean dry bandage with no evidence of active bleeding or infection Skin Exam: Present: normal color, warm/dry, no cyanosis Lymphatic: Present: no adenopathy Neurologic: Present: crocheter hand II-XII nml as tested, normal cerebellar test, no motor/sensory deficits, alert, normal mood/affect, oriented x 3 Appearance: Present: appropriate appearance, appropriate insight, neat, no memory impairment Eye contact: Present: cooperative, good eye contact, normal speech Thoughts: Present: normal thought pattern, no apparent hallucination - Assessments/Findings (1) Alcohol withdrawal Problem: Acute (2) Alcohol use disorder, severe, dependence Problem: Chronic (3) Diabetes Problem: Chronic (4) Alcohol withdrawal Problem: Acute
[2018-08-25] MEDS ORDERED: SENNOSIDES/DOCUSATE SODIUM 1 TAB TABLET PO SCH (21:00)
[2018-08-25] MEDS ORDERED: ZOLPIDEM TARTRATE 10 MG TABLET PO SCH (21:00)
[2018-08-25] MEDS ORDERED: ROSUVASTATIN CALCIUM 10 MG TABLET PO SCH (21:00)
[2018-08-25] MEDS: METOPROLOL TARTRATE 50 MG TABLET PO SCH (21:46)
[2018-08-25] MEDS: DULoxetine HCL 20 MG CAPSULE.SA PO SCH (21:47)
[2018-08-25] MEDS: FAMOTIDINE 20 MG TABLET PO SCH (21:48)
[2018-08-26] MEDS: KETOROLAC TROMETHAMINE 15 MG/ML VIAL IV SCH ×3 (00:32→11:42)
[2018-08-26] MEDS: oxyCODONE HCL/ACETAMINOPHEN 1 TAB TABLET PO PRN ×4 (00:32→14:35)
[2018-08-26] MEDS: ceFAZolin SODIUM 1 GM in DEXTROSE 5 % IN WATER 100 ML IV SCH ×2 (03:55)
[2018-08-26 05:24] LABS: Hematocrit 35.6 % (42.0-52.0); Hemoglobin 11.5 gm/dL (13.5-18.0); Mean Cell Volume 98.6 fl (78-100); Mean Corpuscular Hemoglobin 31.9 pg (27-31); Mean Corpuscular Hgb Conc 32.3 g/dl (32-36); Mean Platelet Volume 9.8 fl (8-11.3); Platelet Count 165 K/mm3 (150-450); Red Blood Count 3.61 M/mm3 (4.7-6.0); Red Cell Distribution Width 12.2 % (11.5-14.0); White Blood Count 7.5 K/mm3 (4.0-10.5)
[2018-08-26 05:30] LABS: Anion Gap 10.5 mmol/L (6.8-13.8); BUN/Creatinine Ratio 14.9 (9.0-21.6); Calcium * 8.3 mg/dL (7.9-10.9); Carbon Dioxide 30.5 mmol/L (24-32.6); Estimated Creat Clear 68.1
[2018-08-26] MEDS: RINGER'S SOLUTION,LACTATED 1,000 ML IV PRN (07:32)
[2018-08-26] MEDS ORDERED: FOLIC ACID 1 MG TABLET PO SCH (09:00)
[2018-08-26] MEDS ORDERED: HYDROCHLOROTHIAZIDE 25 MG TABLET PO SCH (09:00)
[2018-08-26] MEDS ORDERED: THIAMINE HCL 100 MG in NORMAL SALINE 50 ML IV SCH (09:00)
[2018-08-26] MEDS ORDERED: PARoxetine HCL 10 MG TABLET PO SCH (09:00)
[2018-08-26] MEDS ORDERED: LOSARTAN POTASSIUM 50 MG TABLET PO SCH (09:00)
[2018-08-26] MEDS ORDERED: amLODIPine BESYLATE 10 MG TABLET PO SCH (09:00)
[2018-08-26] MEDS: METOPROLOL TARTRATE 50 MG TABLET PO SCH (09:28)
[2018-08-26] MEDS: FAMOTIDINE 20 MG TABLET PO SCH (09:31)
[2018-08-26] MEDS: DULoxetine HCL 20 MG CAPSULE.SA PO SCH (09:32)
[2018-08-26] MEDS: ALPRAZolam 1 MG TABLET PO SCH ×2 (09:42→13:25)
[2018-08-26] MEDS ORDERED: ENOXAPARIN SODIUM 40 MG/0.4 ML SYRG SC SCH (10:38)
--- NOTE | 2018-08-26 12:04 | PN ---
Subjective - Date and Time Seen Date: 08/26/18 Time: 08:00 Subjective Narrative: Patient reports pain controlled. Reports he felt good getting out of bed to chair this morning. He has not walked the halls at this point time. Reports good appetite. No lightheadedness dizziness or shortness of breath. Reports mild to moderate pain. No other complaints at this time. Objective Objective Narrative: Bandages clean dry intact. Patient sitting in chair alert and oriented comfortable. Neurovascular intact with plantar flexion dorsiflexion right ankle. Sensation intact to touch right lower extremity. Calf supple. Labs and vitals reviewed. - Vitals Vitals: Last Vital Signs Temp 36.3 C 08/26/18 10:45 Pulse 78 08/26/18 10:45 Resp 15 08/26/18 10:45 BP 128/60 08/26/18 10:45 Pulse Ox 92 L 08/26/18 10:45 - Abnormal Lab Findings Abnormal Lab Findings: Abnormal Lab Results 08/26/18 08/26/18 Range/Units 05:20 05:20 RBC 3.61 L (4.7-6.0) M/mm3 Hgb 11.5 L (13.5-18.0) gm/dL Hct 35.6 L (42.0-52.0) % MCH 31.9 H (27-31) pg Random Glucose 162 H (70-110) mg/dL Cauti Physician Documentation - Urinary Catheter Management Urethral (Sanabria) Date of Insertion: 08/25/18 Time of Insertion: 08:30 Assessment/Plan - Problems/Diagnosis (1) Status post right knee replacement Problem: Acute Narrative: PT, anticoagulation, pain control, evaluation for skilled placement. (2) Acute blood loss anemia Problem: Acute Narrative: Asymptomatic observation at this time. (3) Alcohol use disorder, severe, dependence Problem: Chronic (4) HTN (hypertension) Problem: Chronic Qualifiers: Hypertension type: essential hypertension Qualified Code(s): I10 - Essential (primary) hypertension (5) Diabetes Problem: Chronic (6) Anxiety Problem: Chronic (7) Peptic ulcer disease Problem: Acute
--- NOTE | 2018-08-26 14:41 | DS ---
(1) Status post right knee replacement Problem: Acute (2) Acute blood loss anemia Problem: Acute (3) Alcohol use disorder, severe, dependence Problem: Chronic (4) HTN (hypertension) Problem: Chronic Qualifiers: Hypertension type: essential hypertension Qualified Code(s): I10 - Essential (primary) hypertension (5) Diabetes Problem: Chronic (6) Anxiety Problem: Chronic (7) Peptic ulcer disease Problem: Chronic Description of Stay: Mr. Spence was admitted to the floor after undergoing right total knee arthroplasty. Tolerated this well. Was admitted to the floor postoperatively for 24 hours of IV antibiotics, pain control, medical comanagement, and occupational and physical therapy. OT and PT were consulted to assist with activities of daily living and ambulation. Was made weightbearing as tolerated with range of motion as tolerated. Pain was initially controlled with IV regimen. This was transitioned to oral once tolerating a by mouth intake. Was resumed on home diet and medications. Had a Sanabria catheter inserted and the operating room which was discontinued on postoperative day 1. A drain was placed intraoperatively into the knee which was discontinued on postoperative day 1. Lovenox SCD and PEPE hose were utilized for DVT prophylaxis. Vital signs remained stable to the hospital course. Serial labs were obtained which showed a final hemoglobin of 11.5 grams. BMP was reviewed and was stable. Physical examination throughout the hospital course showed an extremity that had sensation that was intact to light touch, palpable pulses, a benign wound, motor intact to the toes, ankle, and knee. Knee range of motion was approximately 5 degrees to 60 degrees. Once an oral pain regimen was tolerated and physical therapy goals were met, it was felt that they were stable for discharge to home. Instructions: Continue with weightbearing as tolerated and range of motion as tolerated. It is OK to shower on the wound if it is not draining. If you note any drainage or for comfort you can cover with dry gauze and tape. Change every 2-3 days as needed. Continue with physical therapy. Resume home diet. Report any fever over 101.5 Fahrenheit, uncontrolled pain, increased drainage, foul odor of drainage, new or increased calf pain or shortness of breath, or any other significant complaints. A 325mg dialy aspirin will be started after finishing anticoagulation if not allergic. Continue with PEPE hose on the operative extremity until instructed otherwise. No driving until instructed otherwise. Follow up in approximately 10-14 days. Procedures Performed: see notes below List Procedures: Right total knee arthroplasty Results and Findings: Lab Pending Results 08/25/18 10:38: Pathology Specimen Spec to path 08/26/18 05:20: WBC 7.5, RBC 3.61 L, Hgb 11.5 L, Hct 35.6 L, MCV 98.6, MCH 31.9 H, MCHC 32.3, RDW 12.2, Plt Count 165, MPV 9.8 08/26/18 05:20: Sodium 139, Plasma Sodium 140, Potassium 4.0, Chloride 102, Carbon Dioxide 30.5, Anion Gap 10.5, BUN 15, Creatinine 1.01, Est GFR (Non-Af Amer) 78, BUN/Creatinine Ratio 14.9, Random Glucose 162 H, Calcium 8.3 Discharge Location: [facility] Disposition: SNF Condition: Good Level of Care: SNF - With wheeled walker Discharge Activity: Activity as tolerated, Weight bearing - With wheeled walker Discharge Diet: Low salt, Low fat/chol Referrals: David Koo DO [Primary Care Provider] - Additional Patient Instructions (free text): Follow-up scheduled in the office with Dr. Álvarez on 09/11/18 at 10:00am. Discharging SNF to [facility], PT and OT to evaluate and treat. Prescriptions (Any new or edited meds): Enoxaparin Sodium [Lovenox] 40 mg SC Q24H #7 disp.syrin oxyCODONE HCL/ACETAMINOPHEN [Percocet 5 MG/325 MG] 2 tab PO Q4H PRN #60 tab PRN Reason: Moderate Pain (Pain Scale 4-6) Sennosides/Docusate Sodium [Senokot-S] 2 tab PO HS #30 tab Complete Home Medications List: Complete Home Medication List: Zolpidem Tartrate 10 mg PO HS 07/13/17 metFORMIN HCL [Glucophage] 850 mg PO BID 07/13/17 Folic Acid 1 mg PO DAILY #7 tab 07/17/17 alprazolam 1 mg tablet 1 mg PO TID 07/22/18 amlodipine 10 mg tablet 10 mg PO DAILY 07/22/18 duloxetine 20 mg capsule,delayed release 20 mg PO BID 07/22/18 losartan 100 mg-hydrochlorothiazide 25 mg tablet 1 tab PO DAILY 07/22/18 rosuvastatin 10 mg tablet 10 mg PO DAILY 07/22/18 Metoprolol Tartrate 50 mg PO BID 08/13/18 PARoxetine HCL [Paroxetine HCl] 30 mg PO DAILY 08/25/18 Enoxaparin Sodium [Lovenox] 40 mg SC Q24H #7 disp.syrin 08/26/18 Sennosides/Docusate Sodium [Senokot-S] 2 tab PO HS #30 tab 08/26/18 oxyCODONE HCL/ACETAMINOPHEN [Percocet 5 MG/325 MG] 2 tab PO Q4H PRN #60 tab 08/26/18
[2018-08-26 14:58] VITALS: BP 132/71
== END 2018-08-26 15:10 ==
LOC: MS → EDSTATUS 11:30
PROVIDERS: ADMIT Orthopaedic Surgery; ATTEND Orthopaedic Surgery
DX: E11.9 Type 2 diabetes mellitus without complications; D62 Acute posthemorrhagic anemia; F10.20 Alcohol dependence, uncomplicated; I10 Essential (primary) hypertension; K27.7 Chronic peptic ulcer, site unspecified, without hemorrhage or perforation; Z96.651 Presence of right artificial knee joint
CPT/HCPCS: 36415; 73560; 80048; 85027; 88305; 88311; 97110; 97116; 97161; 97165; 97535; G0378

== ENCOUNTER 2018-11-07 19:59 | Observation (INO) ==
[2018-11-07] MEDS ORDERED: LORazepam 2 MG/ML DISP.SYRIN IM ONE (20:22)
[2018-11-07] MEDS ORDERED: ALBUTEROL SULFATE/IPRATROPIUM 3 ML NEBU IH ONE (20:28)
[2018-11-07] MEDS ORDERED: METHYLPREDNISOLONE SOD SUCC/PF 125 MG/2 ML VIAL IV ONE (20:28)
--- NOTE | 2018-11-07 20:28 | ERNOTE ---
Dyspnea - Date Date of Service: 11/07/18 - General Presenting Symptoms: shortness of breath, other - Chest pain Time Seen by Provider: 11/07/18 20:11 Source: patient - Immun/Allergies/Home Medications Immunizations: IMMUNIZATION HX Immunizations Up to Date Yes History of Influenza Vaccine No Hx Pneumococcal Vaccination No Allergies/Adverse Reactions: Allergies No Known Allergies Allergy (Verified 11/07/18 20:16) Home Medications: HOME MEDICATIONS Sennosides/Docusate Sodium [Senokot-S] 2 tab PO HS #30 tab 08/26/18 [Last Taken Unknown] acetaminophen 325 mg tablet 650 mg PO Q6H PRN #1 tab 09/08/18 [Last Taken Unknown] amlodipine 10 mg tablet 10 mg PO DAILY #90 tab 09/08/18 [Last Taken Unknown] folic acid 1 mg tablet 1 mg PO DAILY #90 tab 09/08/18 [Last Taken Unknown] metformin 850 mg tablet 850 mg PO BID #180 tab 09/08/18 [Last Taken Unknown] metoprolol tartrate 50 mg tablet 50 mg PO BID #180 tab 09/08/18 [Last Taken Unknown] rosuvastatin 10 mg tablet 10 mg PO DAILY #90 tab 09/08/18 [Last Taken Unknown] aspirin 325 mg tablet 325 mg PO DAILY 09/11/18 [Last Taken Unknown] oxycodone-acetaminophen 5 mg-325 mg tablet 1 - 2 tab PO Q6H PRN #60 tab 09/11/18 [Last Taken Unknown] Magnesium 250 mg PO DAILY #30 tab 10/20/18 [Last Taken Unknown] Thiamine Mononitrate [Vitamin B-1] 100 mg PO DAILY #30 tab 10/20/18 [Last Taken Unknown] chlordiazePOXIDE HCL [Librium] 10 mg PO TID PRN #30 cap 10/20/18 [Last Taken Unknown] ALPRAZolam [Xanax] 1 mg PO TID 11/08/18 [Last Taken Unknown] Albuterol Sulfate [Albuterol Sulfate Hfa] 8.5 gm INHALATION Q6H 30 Days #2 hfa.aer.ad 11/08/18 [Last Taken Unknown] Escitalopram Oxalate [Lexapro] 10 mg PO DAILY 11/08/18 [Last Taken Unknown] FLUoxetine HCL [Prozac] 40 mg PO DAILY 11/08/18 [Last Taken Unknown] HYDROcodone/ACETAMINOPHEN [Hydrocodone-Acetamin 5-325 mg] 1 ea PO Q6H PRN 11/08/18 [Last Taken Unknown] Losartan Potassium [Cozaar] 100 mg PO DAILY 11/08/18 [Last Taken Unknown] Magnesium 500 mg PO DAILY 11/08/18 [Last Taken Unknown] Naltrexone HCl [ReVia] 50 mg PO DAILY 11/08/18 [Last Taken Unknown] Zolpidem Tartrate 10 mg PO HS PRN 11/08/18 [Last Taken Unknown] buPROPion HCL [Wellbutrin Xl] 150 mg PO DAILY 11/08/18 [Last Taken Unknown] traZODone HCL [Trazodone HCl] 100 mg PO HS 11/08/18 [Last Taken Unknown] - History of Present Illness Narrative: This is a 73-year-old gentleman who comes in from home. He lives alone. He has a long history of alcohol abuse. Last alcohol was today. Patient reports that he is been having increasing progressive dyspnea on exertion for the last year. He says now that if he gets out and pushes his lawnmower even 10 or 15 feet he is so winded that he cannot function. The thing which prompted the patient come to the hospital this evening however his chest pain. Is been going on now for a few days. It is intermittent. May last between 1 minute and 30 minutes. It is associated with diaphoresis but no nausea or vomiting. He has a sharp grabbing type of pain located in the left chest radiating towards the right. It is not pleuritic. It does not radiate anywhere else. He has not had any coughing more than usual. He has not had any sputum production. He has not had any vomiting. Bowels have been moving normally. The patient seems more concerned about the difficulty in breathing than the chest pain. He does have high blood pressure and diabetes. He denies high cholesterol. He smoked but quit 40 years ago Review of Systems - Review of Systems Constitutional: Present: diaphoresis EYE: Present: no symptoms reported ENT: Present: no symptoms reported Respiratory: Present: shortness of breath, other - Dyspnea on exertion Cardiology: Present: chest pain Gastrointestinal/Abdominal: Present: no symptoms reported Genitourinary: Present: no symptoms reported Musculoskeletal: Present: no symptoms reported Skin: Present: no symptoms reported Neurological: Present: no symptoms reported Endocrine: Present: no symptoms reported Hematologic/Lymphatic: Present: no symptoms reported Psych: Present: no symptoms reported All Other Systems: All systems neg except as marked Medical History (Updated 11/07/18 @ 21:57 by Dereck Jones MD) Breathing problem Daily consumption of alcohol 17-18 beers per day Depression Onset Date: Unknown Ear pain Onset Date: Unknown History of GI bleed Onset Date: Unknown History of anxiety Onset Date: Unknown Hx of diabetes mellitus Onset Date: Unknown Hx of primary hypertension Onset Date: Unknown Hx of sinusitis Onset Date: Unknown Hyperlipemia Left knee DJD Onset Date: Unknown Non-tobacco user Wears dentures Wears glasses Surgical History: Surgical History (Updated 10/21/18 @ 21:09 by Sina Salsa DO) Status post right knee replacement (Chronic) 08/25/18 Preeti History of esophagogastroduodenoscopy (EGD) Onset Date: ~07/13/17 Bagan-clotest negative. 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 Hx of knee surgery Onset Date: Unknown left knee arthroplasty Hx of neck surgery Onset Date: Unknown Left neck artery "for nosebleed" as a child Hx of total knee arthroplasty Onset Date: 08/25/18 Rt-Dr. Álvarez Family History: Family History (Last Reviewed 11/07/18 @ 22:59 by Denise Figueroa RN) Father asthma and cardiac Mother CVA (cerebral vascular accident) A-fib Pacemaker Brother Aortic aneurysm Hypertension Throat cancer Sister Liver cancer Sister Asthma Hyperlipemia Acid reflux Sister Alive and well Sister Alive and well Brother Kidney stones Brother Hyperlipemia Social History: (Last Reviewed 11/07/18 @ 23:00 by Denise Figueroa RN) Social History: Marital status: / lives independently: Yes household members: none current occupational status: retired current occupation: retired Highest education level completed: 11th grade Service: No Tobacco: Smoking Status: Former smoker Alcohol: alcohol intake: current Alcohol type: beer alcohol intake frequency: 3 or more drinks per day Substance Use: substance use type: does not use Dietary Habits: caffeine: Yes Type: coffee, tea Physical Exam - Physical Exam General Appearance: Present: wd/wn, alert, no apparent distress Head Exam: Present: normal inspection, no evidence of injury Eye Exam: Normal inspection: bilateral, PERRL: bilateral, EOMI: bilateral Ears, Nose, Throat: Present: normal ENT inspection, normal pharynx Neck: Present: normal inspection, nontender Respiratory: Present: no respiratory distress, chest nontender, lungs clear, other - Patient with occasional end expiratory wheezes in the right upper and left lower Cardiovascular/Chest: Present: regular rate, rhythm, no murmur Gastrointestinal/Abdominal: Present: normal bowel sounds, nontender, nondistended, soft Back Exam: Present: normal inspection, normal range of motion, no CVA tenderness, no vertebral tenderness Extremity Exam: Present: normal inspection, non-tender, normal range of motion, no edema, other - Patient has no edema or swelling. No chronic venous stasis. Neurological Exam: Present: alert, oriented, normal mood/affect, no motor/sensory deficits Skin Exam: Present: normal color, warm/dry Lymphatic Exam: Present: no adenopathy Progress - Results and Orders Patient's Lab Results:: I have reviewed the patient's lab results. - Vital Signs Patient's Vital Signs:: I have reviewed the patient's vital signs. Vital Signs: Vital Signs 11/07/18 19:59 Temperature 37.4 C Pulse Rate 79 Respiratory Rate 26 H Blood Pressure 175/85 H O2 Sat by Pulse Oximetry 93 - EKG EKG #1 EKG: NSR EKG read: Interp. by me EKG Comments: EKG demonstrates sinus rhythm ventricular rate of 77. [place] is -13 degrees. Normal intervals no ST elevation. T waves have normal morphology and direction - X-Ray X-Ray #1 X-Ray: chest Interpretation: Interp. by me X-ray Comments: Granulomas in the right perihilar area. No signs of acute cardiopulmonary abnormalities no infiltrate - Progress/Reassessment Chief Complaint: Dyspnea Plan - Plan Plan: This is a 73-year-old gentleman with risk factors for cardiac disease coming in with chest pain and shortness of breath. Progressive dyspnea for a year. Chest pain is fairly new. He did have diaphoresis. The pain is been coming and going through a single negative troponin is not adequate. I am going to admit him to the hospital for rule out. We will give him aspirin. No pain at present. The BNP is slightly elevated but I do not think his shortness of breath is coming from this as the x-ray is okay I discussed the case with Dr. Lao who is graciously agreed to admit the patient. She has requested repeat troponin at 2 AM and 8 AM. I made her aware that the patient's pain is been coming and going so that a negative troponin does not definitively rule them out especially for unstable angina. She has requested that I placed the patient on alcohol withdrawal protocol, the CIWA scale. We went through the patient's medicines and she asked that I give him an additional medicine for anxiety as well as his pain medicine. I have done so. She will take care of the remainder of the labs and medicines in the morning Departure Clinical Impression: Chest pain Qualifiers: Chest pain type: unspecified Qualified Code(s): R07.9 - Chest pain, unspecified - Departure Disposition: Still a patient Condition: Fair
[2018-11-07 20:37] LABS: Hematocrit 35.1 % (42.0-52.0); Hemoglobin 11.4 gm/dL (13.5-18.0); Mean Cell Volume 97.2 fl (78-100); Mean Corpuscular Hemoglobin 31.6 pg (27-31); Mean Corpuscular Hgb Conc 32.5 g/dl (32-36); Mean Platelet Volume 9.2 fl (8-11.3); Neutrophil # 4.7 K/mm3 (1.3-6.0); Neutrophil % 74.8 % (42-75.0); Platelet Count 221 K/mm3 (150-450); Red Blood Count 3.61 M/mm3 (4.7-6.0); Red Cell Distribution Width 14.4 % (11.5-14.0); White Blood Count 6.3 K/mm3 (4.0-10.5)
[2018-11-07 20:57] LABS: ALT 8 U/L (19-67); AST 15 U/L (0-48); Albumin * 3.1 gm/dl (3.4-5.0); Alkaline Phosphatase * 96 U/L (50-170); Anion Gap 11.9 mmol/L (6.8-13.8); BNP * 706 pg/mL (5-350); BUN/Creatinine Ratio 10.2 (9.0-21.6); Bilirubin, Total 0.3 mg/dL (0.0-1.1); Blood Urea Nitrogen 9 mg/dL (6-23); Ca. Corrected For Albumin 8.9 mg/dL (8.4-10.2); Calcium * 8.5 mg/dL (7.9-10.9); Carbon Dioxide 28.2 mmol/L (24-32.6); Chloride 101 mmol/L (97-106); Glucose * 125 mg/dL (70-110); Lipase 97 U/L (73-393); Potassium 4.1 mmol/L (3.4-4.6); Sodium 137 mmol/L (132-142); Total Protein 6.3 gm/dL (6.2-8.2); Troponin I Less than 0.017 ng/mL (0.00-0.10)
[2018-11-07] MEDS ORDERED: ASPIRIN 81 MG TAB.CHEW PO ONE (21:47)
[2018-11-07] MEDS ORDERED: LORazepam 2 MG/ML DISP.SYRIN IV ONE (21:55)
[2018-11-07] MEDS ORDERED: oxyCODONE HCL/ACETAMINOPHEN 1 TAB TABLET PO PRN (21:55)
[2018-11-07] MEDS ORDERED: ALPRAZolam 0.25 MG TABLET PO ONE (21:55)
[2018-11-08] MEDS ORDERED: ALBUTEROL SULFATE/IPRATROPIUM 3 ML NEBU IH PRN (08:22)
[2018-11-08] MEDS ORDERED: oxyCODONE HCL/ACETAMINOPHEN 1 TAB TABLET PO PRN (08:23)
[2018-11-08] MEDS ORDERED: chlordiazePOXIDE HCL 10 MG CAPSULE PO PRN (08:23)
[2018-11-08] MEDS ORDERED: ACETAMINOPHEN 325 MG TABLET PO PRN (08:23)
--- NOTE | 2018-11-08 08:56 | HPDIS ---
Chief Complaint - Chief Complaint Date of Service: 11/08/18 Time of Service: 08:26 Chief Complaint: I have been short of breath and had chest pain yesterday History of Present Illness: 73-year-old male with past medical history of depression, anxiety disorder, type 2 diabetes, hypertension, hyperlipidemia, alcoholism, former smoker, was evaluated in our ER due to retrosternal chest pain accompanied by worsening dyspnea and diaphoresis that occurred yesterday afternoon while the patient was attempting to cut his grass with a lot more. Patient reports that he has had chronic shortness of breath that has been worsening for more than a year, he denies ever being evaluated for his shortness of breath by his primary care doctor or any other physician. Patient has never undergone PFT to evaluate his pulmonary function, and he does admit to a past of smoking cigarettes although he stopped more than 40 years ago. Patient reports that his shortness of breath is so bad that he is now unable to ambulate short distances without being markedly short of breath. He admits to alcohol abuse where he drinks more than 10 beers a day. Patient lives alone and is not consistent in attending appointments with his PCP. Patient describes his chest pain as a grabbing pressure that goes across his chest he denies of irradiation, or nausea and vomiting, and he rates it 7 out of 10 in intensity. He eventually became concerned enough to call the ambulance and was taken to the ER. Medical History (Updated 11/07/18 @ 21:57 by Dereck Jones MD) Breathing problem Daily consumption of alcohol 17-18 beers per day Depression Onset Date: Unknown Ear pain Onset Date: Unknown History of GI bleed Onset Date: Unknown History of anxiety Onset Date: Unknown Hx of diabetes mellitus Onset Date: Unknown Hx of primary hypertension Onset Date: Unknown Hx of sinusitis Onset Date: Unknown Hyperlipemia Left knee DJD Onset Date: Unknown Non-tobacco user Wears dentures Wears glasses Surgical History: Surgical History (Updated 10/21/18 @ 21:09 by Sina Salas DO) Status post right knee replacement (Chronic) 08/25/18 [place] History of esophagogastroduodenoscopy (EGD) Onset Date: ~07/13/17 [place]-clotest negative. 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 Hx of knee surgery Onset Date: Unknown left knee arthroplasty Hx of neck surgery Onset Date: Unknown Left neck artery "for nosebleed" as a child Hx of total knee arthroplasty Onset Date: 08/25/18 Rt-Dr. Álvarez Family History: Family History (Last Reviewed 11/07/18 @ 22:59 by Denise Figueroa, CAYDEN) Father asthma and cardiac Mother CVA (cerebral vascular accident) A-fib Pacemaker Brother Aortic aneurysm Hypertension Throat cancer Sister Liver cancer Sister Asthma Hyperlipemia Acid reflux Sister Alive and well Sister Alive and well Brother Kidney stones Brother Hyperlipemia Social History: (Last Reviewed 11/07/18 @ 23:00 by Denise Figueroa, CAYDEN) Social History: Marital status: / lives independently: Yes household members: none current occupational status: retired current occupation: retired Highest education level completed: 11th grade Service: No Tobacco: Smoking Status: Former smoker Alcohol: alcohol intake: current Alcohol type: beer alcohol intake frequency: 3 or more drinks per day Substance Use: substance use type: does not use Dietary Habits: caffeine: Yes Type: coffee, tea Peds Patient Hx - Developmental: No Pertinent Hx Peds Patient Hx - Medical: No Pertinent Hx Peds Patient Hx - Cardiac/Respiratory: No Pertinent Hx Peds Patient Hx - Surgical: No Surgical History Patient History - Cancer: No Hx of Cancer Review Of Systems (GEN) - Review of Systems Generalized/Overall Review: Present: No Symptoms Reported EENTM: Present: No Symptoms Reported Respiratory: Present: Shortness of Breath Cardiac: Present: Chest Pain Abdominal: Present: No Symptoms Reported Genitourinary: Present: No Symptoms Reported Musculoskeletal: Present: No Symptoms Reported Neurological: Present: No Symptoms Reported Skin: Present: No Symptoms Reported Endocrine: Present: No Symptoms Reported Immunizations: IMMUNIZATION HX Immunizations Up to Date Yes History of Influenza Vaccine No Hx Pneumococcal Vaccination No Allergies/Adverse Reactions: Allergies Allergy/AdvReac Type Severity Reaction Status Date / Time No Known Allergies Allergy Verified 11/07/18 20:16 Home Medications: HOME MEDICATIONS Sennosides/Docusate Sodium [Senokot-S] 2 tab PO HS #30 tab 08/26/18 [Last Taken Unknown] acetaminophen 325 mg tablet 650 mg PO Q6H PRN #1 tab 09/08/18 [Last Taken Unknown] amlodipine 10 mg tablet 10 mg PO DAILY #90 tab 09/08/18 [Last Taken Unknown] folic acid 1 mg tablet 1 mg PO DAILY #90 tab 09/08/18 [Last Taken Unknown] metformin 850 mg tablet 850 mg PO BID #180 tab 09/08/18 [Last Taken Unknown] metoprolol tartrate 50 mg tablet 50 mg PO BID #180 tab 09/08/18 [Last Taken Unknown] rosuvastatin 10 mg tablet 10 mg PO DAILY #90 tab 09/08/18 [Last Taken Unknown] aspirin 325 mg tablet 325 mg PO DAILY 09/11/18 [Last Taken Unknown] oxycodone-acetaminophen 5 mg-325 mg tablet 1 - 2 tab PO Q6H PRN #60 tab 09/11/18 [Last Taken Unknown] Magnesium 250 mg PO DAILY #30 tab 10/20/18 [Last Taken Unknown] Thiamine Mononitrate [Vitamin B-1] 100 mg PO DAILY #30 tab 10/20/18 [Last Taken Unknown] chlordiazePOXIDE HCL [Librium] 10 mg PO TID PRN #30 cap 10/20/18 [Last Taken Unknown] ALPRAZolam [Xanax] 1 mg PO TID 11/08/18 [Last Taken Unknown] Albuterol Sulfate [Albuterol Sulfate Hfa] 8.5 gm INHALATION Q6H 30 Days #2 hfa.aer.ad 11/08/18 [Last Taken Unknown] Escitalopram Oxalate [Lexapro] 10 mg PO DAILY 11/08/18 [Last Taken Unknown] FLUoxetine HCL [Prozac] 40 mg PO DAILY 11/08/18 [Last Taken Unknown] HYDROcodone/ACETAMINOPHEN [Hydrocodone-Acetamin 5-325 mg] 1 ea PO Q6H PRN 11/08/18 [Last Taken Unknown] Losartan Potassium [Cozaar] 100 mg PO DAILY 11/08/18 [Last Taken Unknown] Magnesium 500 mg PO DAILY 11/08/18 [Last Taken Unknown] Naltrexone HCl [ReVia] 50 mg PO DAILY 11/08/18 [Last Taken Unknown] Zolpidem Tartrate 10 mg PO HS PRN 11/08/18 [Last Taken Unknown] buPROPion HCL [Wellbutrin Xl] 150 mg PO DAILY 11/08/18 [Last Taken Unknown] traZODone HCL [Trazodone HCl] 100 mg PO HS 11/08/18 [Last Taken Unknown] Exam - Exam Vital Signs: Vital Signs - Last Taken Temp 36.6 C 11/08/18 06:49 Pulse 74 11/08/18 06:49 Resp 18 11/08/18 06:49 BP 170/86 H 11/08/18 06:49 Pulse Ox 94 11/08/18 06:49 Constitutional: Present: Alert, Oriented x3, Cooperative, Well developed, No distress, Elderly, Obese ENT Exam: Present: normal ENT inspection, hearing grossly normal, pharynx normal Eye Exam: bilateral eye: normal inspection, PERRL, EOMI Neck: Present: non-tender, full range of motion, supple, normal inspection, trachea midline Back Exam: Present: normal inspection, no CVA tenderness, no vertebral tenderness Breasts: Present: Exam deferred Respiratory: Present: wheezing - Scattered wheezing heard bilaterally no crackles Cardiovascular/Chest: Present: normal peripheral pulses, regular rate, rhythm, no chest tenderness, no edema, no gallop, no JVD, no murmur, no rub Peripheral Pulses: carotid (R): 3+, carotid (L): 3+, femoral (R): 3+, femoral (L): 3+, dorsalis-pedis (R): 3+, dorsalis-pedis (L): 3+ Abdomen: Present: Normal bowel sounds, soft, nontender, nondistended, no rebound tenderness, no masses, obese /Rectal: Present: Exam deferred Extremity: Present: normal range of motion, non-tender, normal inspection, no pedal edema, no calf tenderness, normal capillary refill Skin Exam: Present: normal color, warm/dry, no cyanosis Lymphatic: Present: no adenopathy Neurologic: Present: 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, normal cerebellar test, no motor/sensory deficits, alert, normal mood/affect, oriented x 3 Appearance: Present: appropriate appearance, appropriate insight, neat, no memory impairment Eye contact: Present: cooperative, good eye contact, normal speech Thoughts: Present: normal thought pattern, no apparent hallucination Diagnostic Studies: Abnormal Lab Results 11/07/18 11/07/18 Range/Units 20:35 20:35 RBC 3.61 L (4.7-6.0) M/mm3 Hgb 11.4 L (13.5-18.0) gm/dL Hct 35.1 L (42.0-52.0) % MCH 31.6 H (27-31) pg RDW 14.4 H (11.5-14.0) % Lymphocytes % 13.8 L (20-51) % Lymphocytes # 0.87 L (1.5-3.5) k/mm3 Random Glucose 125 H (70-110) mg/dL ALT 8 L (19-67) U/L B-Natriuretic Peptide 706 H (5-350) pg/mL Albumin 3.1 L (3.4-5.0) gm/dl Laboratory Results WBC 6.3 K/mm3 (4.0-10.5) 11/07/18 20:35 RBC 3.61 M/mm3 (4.7-6.0) L 11/07/18 20:35 Hgb 11.4 gm/dL (13.5-18.0) L 11/07/18 20:35 Hct 35.1 % (42.0-52.0) L 11/07/18 20:35 MCV 97.2 fl (78-100) 11/07/18 20:35 MCH 31.6 pg (27-31) H 11/07/18 20:35 MCHC 32.5 g/dl (32-36) 11/07/18 20:35 RDW 14.4 % (11.5-14.0) H 11/07/18 20:35 Plt Count 221 K/mm3 (150-450) 11/07/18 20:35 MPV 9.2 fl (8-11.3) 11/07/18 20:35 Immature Gran % (Auto) 0.30 % (0.001-0.429) 11/07/18 20:35 Immature Gran # (Auto) 0.02 K/mm3 (0.000-0.0310) 11/07/18 20:35 74.8 % (42-75.0) 11/07/18 20:35 13.8 % (20-51) L 11/07/18 20:35 8.9 % (0.0-9) 11/07/18 20:35 1.6 % (0.0-3.0) 11/07/18 20:35 0.6 % (0.0-1.0) 11/07/18 20:35 Nucleated RBC % 0.0 k/mm3 (0-1) 11/07/18 20:35 4.7 K/mm3 (1.3-6.0) 11/07/18 20:35 0.87 k/mm3 (1.5-3.5) L 11/07/18 20:35 0.6 k/mm3 (0.0-1.0) 11/07/18 20:35 0.1 k/mm3 (0.0-0.7) 11/07/18 20:35 Absolute Basophils 0.0 k/mm3 (0.0-0.1) 11/07/18 20:35 Sodium 137 mmol/L (132-142) 11/07/18 20:35 137 mmol/L (130-142) 11/07/18 20:35 Potassium 4.1 mmol/L (3.4-4.6) 11/07/18 20:35 Chloride 101 mmol/L (97-106) 11/07/18 20:35 Carbon Dioxide 28.2 mmol/L (24-32.6) 11/07/18 20:35 11.9 mmol/L (6.8-13.8) 11/07/18 20:35 BUN 9 mg/dL (6-23) 11/07/18 20:35 0.88 mg/dL (0.4-1.4) 11/07/18 20:35 Est GFR (Non-Af Amer) 91 mL/min (60-130) 11/07/18 20:35 10.2 (9.0-21.6) 11/07/18 20:35 125 mg/dL (70-110) H 11/07/18 20:35 Calcium 8.5 mg/dL (7.9-10.9) 11/07/18 20:35 Calcium Adj for Albumin 8.9 mg/dL (8.4-10.2) 11/07/18 20:35 0.3 mg/dL (0.0-1.1) 11/07/18 20:35 AST 15 U/L (0-48) 11/07/18 20:35 ALT 8 U/L (19-67) L 11/07/18 20:35 96 U/L (50-170) 11/07/18 20:35 Less than 0.017 ng/mL (0.00-0.10) 11/08/18 01:57 B-Natriuretic Peptide 706 pg/mL (5-350) H 11/07/18 20:35 6.3 gm/dL (6.2-8.2) 11/07/18 20:35 3.1 gm/dl (3.4-5.0) L 11/07/18 20:35 97 U/L (73-393) 11/07/18 20:35 Ethyl Alcohol 9.0 mg/dL (0.0-10.0) 11/07/18 20:35 Assessment/Plan - Narrative Narrative: Patient was evaluated and medical chart was reviewed and decision to admit to observation in the [facility] was made. Patient was treated with aspirin in the ER and was eventually taken to the floor. Checks x-ray ordered in the ER was negative for any pulmonary edema only suggestion of infiltrate was made but clinically auscultation does not demonstrate any concerning findings. Patient is currently resting comfortably, he denies any recurrence of the chest pain, however his shortness of breath persist. Therefore after thorough bedside evaluation and confirmation that the patient had wheezing on auscultation breathing treatment with DuoNeb was ordered to be administered every 4 hours as needed. There was no pedal edema or JVD detected although there has been mildly elevated BNP, the clinical findings does not support a diagnosis of CHF. However was explained to patient that giving the wheezing heard on auscultation and his passive cigarette smoking it is likely that he has COPD or some sort of respiratory issues that needs to be addressed. He was also informed that he is cardiac troponins are negative and his EKG was negative for PA, however given his risk factors such as morbid obesity hyperlipidemia and chronic alcohol abuse it was suggested to patient that he undergo a a stress test on outpatient basis. He agrees with this assessment and agrees to follow-up with his PCP for further evaluation. In the meantime patient will be treated with breathing treatments [id number], we will monitor his oxygen saturation and continue to watch for recurrence of chest pain. Patient is a known alcoholic, therefore alcohol withdrawal protocol was put in place. Description of Stay: Patient denies recurrence of chest pain, cardiac troponins and EKG are negative for PA, chest x-ray was negative for any acute findings. Therefore, patient was treated for shortness of breath with DuoNeb every 4 hours and he was administered his routine medications while under our care. Outpatient management with a PFT to evaluate pulmonary function and a cardiac stress test was discussed and he agreed to both. Patient will be discharged with orders for the PFT and a cardiac stress test as well as a inhaler to be used on a as needed basis. He was instructed to follow-up with his PCP within the next week. He was also told to return to the ER if chest pain recurs. Procedures Performed: none Results and Findings: Lab Pending Results 11/07/18 20:35: WBC 6.3, RBC 3.61 L, Hgb 11.4 L, Hct 35.1 L, MCV 97.2, MCH 31.6 H, MCHC 32.5, RDW 14.4 H, Plt Count 221, MPV 9.2, Immature Gran % (Auto) 0.30, Immature Gran # (Auto) 0.02, Neutrophils % 74.8, Lymphocytes % 13.8 L, Monocytes % 8.9, Eosinophils % 1.6, Basophils % 0.6, Nucleated RBC % 0.0, Neutrophils # 4.7, Lymphocytes # 0.87 L, Monocytes # 0.6, Eosinophils # 0.1, Absolute Basophils 0.0 11/07/18 20:35: Sodium 137, Plasma Sodium 137, Potassium 4.1, Chloride 101, Carbon Dioxide 28.2, Anion Gap 11.9, BUN 9, Creatinine 0.88, Est GFR (Non-Af Amer) 91, BUN/Creatinine Ratio 10.2, Random Glucose 125 H, Calcium 8.5, Calcium Adj for Albumin 8.9, Total Bilirubin 0.3, AST 15, ALT 8 L, Alkaline Phosphatase 96, Troponin I Less than 0.017, B-Natriuretic Peptide 706 H, Total Protein 6.3, Albumin 3.1 L, Lipase 97, Ethyl Alcohol 9.0 11/08/18 01:57: Troponin I Less than 0.017 Discharge Location: Home Disposition: Home self-care Condition: Fair Face to Face Encounter completed per CMS Guidelines: No Discharge Activity: Activity as tolerated Discharge Diet: Low fat/chol Referrals: David Koo DO [Primary Care Provider] - Problem Oriented Discharge Instructions to Patient/Family: Nonspecific Chest Pain, [id number] Additional Patient Instructions (free text): Community wide scheduling will call you with appointment date/time for your PFT and stress test. Follow up with Dr Koo. [facility] will call you on Saturday with appointment. Prescriptions (Any new or edited meds): Albuterol Sulfate [Albuterol Sulfate Hfa] 8.5 gm INHALATION Q6H 30 Days #2 hfa.aer.ad Complete Home Medications List: Complete Home Medication List: Sennosides/Docusate Sodium [Senokot-S] 2 tab PO HS #30 tab 08/26/18 acetaminophen 325 mg tablet 650 mg PO Q6H PRN #1 tab 09/08/18 amlodipine 10 mg tablet 10 mg PO DAILY #90 tab 09/08/18 folic acid 1 mg tablet 1 mg PO DAILY #90 tab 09/08/18 metformin 850 mg tablet 850 mg PO BID #180 tab 09/08/18 metoprolol tartrate 50 mg tablet 50 mg PO BID #180 tab 09/08/18 rosuvastatin 10 mg tablet 10 mg PO DAILY #90 tab 09/08/18 aspirin 325 mg tablet 325 mg PO DAILY 09/11/18 oxycodone-acetaminophen 5 mg-325 mg tablet 1 - 2 tab PO Q6H PRN #60 tab 09/11/18 Magnesium 250 mg PO DAILY #30 tab 10/20/18 Thiamine Mononitrate [Vitamin B-1] 100 mg PO DAILY #30 tab 10/20/18 chlordiazePOXIDE HCL [Librium] 10 mg PO TID PRN #30 cap 10/20/18 ALPRAZolam [Xanax] 1 mg PO TID 11/08/18 Albuterol Sulfate [Albuterol Sulfate Hfa] 8.5 gm INHALATION Q6H 30 Days #2 hfa.aer.ad 11/08/18 Escitalopram Oxalate [Lexapro] 10 mg PO DAILY 11/08/18 FLUoxetine HCL [Prozac] 40 mg PO DAILY 11/08/18 HYDROcodone/ACETAMINOPHEN [Hydrocodone-Acetamin 5-325 mg] 1 ea PO Q6H PRN 11/08/18 Losartan Potassium [Cozaar] 100 mg PO DAILY 11/08/18 Magnesium 500 mg PO DAILY 11/08/18 Naltrexone HCl [ReVia] 50 mg PO DAILY 11/08/18 Zolpidem Tartrate 10 mg PO HS PRN 11/08/18 buPROPion HCL [Wellbutrin Xl] 150 mg PO DAILY 11/08/18 traZODone HCL [Trazodone HCl] 100 mg PO HS 11/08/18 Amb Orders for Discharge: NUC Pharmacological Stress Time Frame: 1 Week, Location: Radiology PFT Complete Time Frame: 1 Week, Location: Respiratory Therapy
[2018-11-08] MEDS ORDERED: amLODIPine BESYLATE 10 MG TABLET PO SCH (09:00)
[2018-11-08] MEDS ORDERED: METOPROLOL TARTRATE 50 MG TABLET PO SCH (09:00)
[2018-11-08] MEDS ORDERED: HYDROCHLOROTHIAZIDE PO SCH (09:00)
[2018-11-08] MEDS ORDERED: FOLIC ACID 1 MG TABLET PO SCH (09:00)
[2018-11-08] MEDS ORDERED: MAGNESIUM OXIDE 400 MG TABLET PO SCH (09:00)
[2018-11-08] MEDS ORDERED: LOSARTAN POTASSIUM 50 MG TABLET PO SCH (09:00)
[2018-11-08] MEDS ORDERED: DULoxetine HCL 30 MG CAPSULE.SA PO SCH (09:00)
[2018-11-08] MEDS ORDERED: [UNRECOGNIZED DRUG - OTHER] PO SCH (09:00)
[2018-11-08] MEDS ORDERED: ALPRAZolam 1 MG TABLET PO SCH (09:00)
[2018-11-08] MEDS ORDERED: LOSARTAN PO SCH (09:00)
[2018-11-08] MEDS ORDERED: MAGNESIUM OXIDE 500 MG PO SCH (09:00)
[2018-11-08] MEDS ORDERED: ASPIRIN 325 MG TABLET.DR PO SCH (09:00)
[2018-11-08] MEDS ORDERED: HYDROCHLOROTHIAZIDE 25 MG TABLET PO SCH (09:00)
[2018-11-08 12:18] VITALS: BP 158/80
== END 2018-11-08 11:45 | disposition home or self-care (01) ==
LOC: ER 19:59 → MS 19:59
PROVIDERS: ADMIT Family Medicine; ATTEND Family Medicine
DX: R06.02 Shortness of breath; R07.9 Chest pain, unspecified
CPT/HCPCS: 36415; 71020; 71046; 80053; 80320; 83519; 83690; 83880; 84484; 85025; 93005; 94640; 94664; 96372; 96374; 96375; 99284; G0378; G0481